=== PATIENT | male | born 1960 | race Caucasian/White ===

== ENCOUNTER 2022-11-03 23:42 | Emergency (ER) | payer OTHER, SELFPAY ==
--- NOTE | ~2022-11-03 | XR_ITS ---
Portable chest x-ray Comparison: None Clinical History: Chest pain Findings: Lungs are clear, without focal consolidation or pleural effusion. Cardiomediastinal silho uette is enlarged. Bones and soft tissues are unremarkable. Impression: Clear lungs. Cardiomegaly. Reviewed, dictated and finalized at location . Impression: Clear lungs. Cardiomegaly.
--- NOTE | 2022-11-03 23:51 | ECG_ITS ---
Measurements Intervals [place] Rate: 72 P: -47 ME: 171 QRS: -33 QRSD: 214 T: 147 QT: 502 QTc: 550 Interpretive Statements ECTOPIC ATRIAL RHYTHM BASELINE ARTIFACT/DIFFICULT TO DISCERN ATRIAL RHYTHM LEFT AXIS DEVIATION [QRS AXIS < -30] LEFT BUNDLE BRANCH BLOCK [120+ ms QRS DURATION, 80+ ms Q/S IN V1/V2, 85+ ms R IN I/aVL/V5/V6] NO PREVIOUS ECG AVAILABLE FOR COMPARISON Electronically Signed On 11-04-2022 7:17:59 CDT by Ayo Betts M.D.
[2022-11-03 23:58] VITALS: PULSE 71; O2SAT 100
--- NOTE | 2022-11-03 23:58 | ED.GENADULT ---
HPI - General Adult General Chief complaint: Chest Pain Stated complaint: Chest pain Time Seen by Provider: 11/03/22 23:45 History of Present Illness HPI narrative: The patient is a 62-year-old male with history of hypertension, on losartan and hydrochlorothiazide, and obesity. He is on multiple medications for weight loss. Also with GERD. He presents to the emergency room with onset of left upper sternal substernal chest discomfort since 8:00 p.m., constant in nature, waxing and waning in intensity, not radiating elsewhere in the chest described as mild, and ache or discomfort. It is not worse by pressing on the chest wall. He has associated burping with it. No shortness of breath or diaphoresis or nausea or fevers or chills or cough rhinorrhea or nasal congestion or abdominal pain or vomiting. No previous similar history. No history of myocardial infarction or stroke. No known diabetes. Has never smoked. Related Data Home Medications Medication Instructions Recorded Confirmed aspirin 81 mg capsule 81 mg PO DAILY 11/03/22 11/03/22 hydrochlorothiazide 25 mg tablet 25 mg PO DAILY 11/03/22 11/03/22 levocetirizine 5 mg tablet 5 mg PO DAILY 11/03/22 11/03/22 losartan 50 mg tablet 50 mg PO DAILY 11/03/22 11/03/22 omeprazole magnesium 20 mg 20 mg PO DAILY 11/03/22 11/03/22 tablet,delayed release (Prilosec OTC) phentermine 37.5 mg tablet 37.5 mg PO DAILY 11/03/22 11/03/22 topiramate 50 mg tablet 50 mg PO BID 11/03/22 11/03/22 vitamin B complex (B 1 tablet PO DAILY 11/03/22 11/03/22 Complex-Vitamin B12 tablet) Allergies Allergy/AdvReac Type Severity Reaction Status Date / Time No Known Allergies Allergy Verified 11/03/22 23:56 Review of Systems Review of Systems: All systems reviewed & are unremarkable except as noted in HPI and below Constitutional: Constitutional: Reports as per HPI, Reports no additional constitutional complaints, Denies chills, Denies excessive sweating, Denies fatigue, Denies fever(s), Denies headache(s) and Denies weakness Eyes: Eyes: Reports as per HPI, Reports no additional eye complaints, Denies change in vision and Denies photophobia ENT: Reports system reviewed and no additional complaints, except as documented, Reports as per HPI, Denies dysphagia, Denies vertigo, Denies dizziness, Denies headache(s), Denies lip swelling, Denies nasal congestion, Denies sore throat, Denies throat swelling and Denies tongue swelling Cardiovascular: Cardiovascular: Reports as per HPI, Reports no additional cardiovascular complaints, Reports chest pain, Denies syncope, Denies rapid heart rate and Denies dyspnea Respiratory: Respiratory: Reports as per HPI, Reports no additional respiratory complaints, Denies chest congestion, Denies cough, Denies dyspnea and Denies wheezing Gastrointestinal: Gastrointestinal: Reports as per HPI, Reports no additional gastrointestinal complaints, Denies abdominal pain, Denies constipation, Denies dysphagia, Denies diarrhea, Denies nausea and Denies vomiting Genitourinary: Genitourinary: Reports as per HPI, Denies hematuria, Denies oliguria, Denies dysuria, Denies urinary frequency, Denies urinary incontinence and Denies urinary urgency Musculoskeletal: Musculoskeletal: Reports no additional musculoskeletal complaints, Denies back pain, Denies myalgias, Denies arthralgias, Denies joint swelling and Denies numbness Integumentary/Breasts: Skin/Breast: Reports system reviewed and no additional complaints, except as docu, Denies pruritus, Denies erythema, Denies rash and Denies skin ulcer Neurologic: Reports system reviewed and no additional complaints, except as documented, Reports as per HPI, Denies confusion, Denies vertigo, Denies dizziness, Denies syncope, Denies headache(s), Denies focal weakness, Denies numbness and Denies weakness Psychiatric: Psychiatric: Reports as per HPI, Denies anxiety, Denies confusion, Denies depression, Denies homicidal ideation and Denies suicidal ideat
[2022-11-04] VITALS (15 sets, daily range): BP systolic 117–140; BP diastolic 72–92; PULSE 65–74; RESP 9–20; TEMP 36.6–36.9; O2SAT 93–99
[2022-11-04 00:09] LABS: Basophils Absolute Auto 0.04 K/mm3 (0.00-0.10); Basophils Percent Auto 0.7 % (0.0-1.0); Eosinophils Absolute Auto 0.24 K/mm3 (0.02-0.50); Eosinophils Percent Auto 4.1 % (1.0-6.0); Hematocrit 41.7 % (40.0-54.0); Hemoglobin 14.1 g/dL (14.0-18.0); Immature Granulocyte Absolute 0.03 K/mm3 (0.00-0.00); Immature Granulocyte Percent A 0.5 % (0.0-0.0); Lymphocytes Absolute Auto 1.97 K/mm3 (1.10-4.50); Lymphocytes Percent Auto 33.8 % (18.0-42.0); Mean Corpuscular HGB Conc 33.8 g/dL (32.0-36.0); Mean Corpuscular Hemoglobin 30.7 pg (27.0-31.0); Mean Corpuscular Volume 90.7 fL (78.0-102.0); Mean Platelet Volume 8.3 fl (8.7-11.0); Monocytes Absolute Auto 0.48 K/mm3 (0.10-0.90); Monocytes Percent Auto 8.2 % (2.0-11.0); Neutrophils Absolute Auto 3.1 K/mm3 (1.7-7.2); Neutrophils Percent Auto 52.7 % (50.0-70.0); Platelet Count Result 279 K/mm3 (150-420); White Blood Count 5.8 K/mm3 (4.8-10.8)
[2022-11-04] MEDS: ASPIRIN 81 MG CHEWABLE TABLET 324 MG PO (00:10)
[2022-11-04] MEDS: NITROGLYCERIN OINTMENT 1 INCH DOSE TRANSDERM (00:10)
[2022-11-04] MEDS: ACETAMINOPHEN 500 MG TABLET 1000 MG PO (00:10)
[2022-11-04] MEDS: KETOROLAC 15 MG/ML VIAL (*BKC) IV PUSH (00:11)
[2022-11-04 00:22] LABS: D Dimer 0.26 mg/L (0.19-0.50)
[2022-11-04 00:30] LABS: Alanine Aminotransferase 22 U/L (16-63); Albumin Level 3.6 g/dL (3.4-5.0); Alkaline Phosphatase 76 U/L (46-116); Anion Gap 8 mmol/L (8-16); Aspartate Amino Transferase 16 U/L (15-37); Bilirubin,Total 0.4 mg/dL (0.00-1.00); Blood Urea Nitrogen 16 mg/dL (7-18); Calcium 8.9 mg/dL (8.5-10.1); Carbon Dioxide 29 mmol/L (21-32); Chloride 100 mmol/L (98-108); Estimated CRCL calculation 111 ml/min; Estimated Glomerular Filt Rate > 60; Glucose 103 mg/dL (70-99); NT Pro B Type Natriuretic Pept 851 pg/mL (0-125); Osmolality Calculated 285 mOsm/kg (285-295); Potassium 3.9 mmol/L (3.5-5.1); Sodium 137 mmol/L (136-145); Total Protein 6.9 g/dL (6.4-8.2)
[2022-11-04 00:31] LABS: Troponin I 23.9 ng/L (0.00-60.4)
--- NOTE | 2022-11-04 01:46 | PC.NURSE ---
Pt resting, no c/o at this time, monitor continues to show SR c BBB, VSS. Call hodge at pt side.
[2022-11-04 02:26] LABS: Troponin I 19.5 ng/L (0.00-60.4)
== END 2022-11-04 02:53 | disposition home or self-care (01) ==
PROVIDERS: Emergency Provider Emergency Medicine; PCP Family Medicine
DX: I11.0 Hypertensive heart disease with heart failure (principal); I50.9 Heart failure, unspecified; Z79.82 Long term (current) use of aspirin
CPT/HCPCS: 36415; 71045; 80053; 83880; 84484; 85025; 85380; 93005; 96374; 99284; A9270; J1885

== ENCOUNTER 2022-11-05 10:08 | Inpatient (IN) | payer OTHER, SELFPAY ==
[2022-11-05] VITALS (26 sets, daily range): BP systolic 145–180; BP diastolic 91–109; PULSE 77–96; RESP 14–20; TEMP 36.7–36.8; O2SAT 96–100; BMI 43.9
--- NOTE | ~2022-11-05 | XR_ITS ---
Thoracic spine: Clinical Indication: Back pain AP and lateral views were performed. No fracture is seen. There is normal alignment of the vertebrae. There are scattered mild degenerati ve disc changes throughout the thoracic spine. Paravertebral soft tissues appear normal. Impression: Mild degenerative disc changes throughout the thoracic spine. No fracture or subluxation seen. Reviewed, dictated and finalized at [facility]. Impression: Mild degenerative disc changes throughout the thoracic spine. No fracture or subluxation seen.
--- NOTE | ~2022-11-05 | NM_ITS ---
EXAMINATION: NM lynette stress w perfusion DATE: 11/06/2022 14:44 INDICATION: Chest pain TECHNIQUE: Rest images were obtained following intravenous administration of 10.1 mCi Tc99m tetrofosm in (Myoview). The patient was infused intravenously with Lexiscan (Regadenoson). Then, 32.7 mCi Tc99m tetrofosmin (Myoview) was administered intravenously, and stress images were obtained, first in supi ne position with additional repeat post stress images obtained in the prone position. Data was recons tructed into short axis and horizontal and vertical long axis SPECT images. Gated SPECT images were a lso obtained. COMPARISON: None. FINDINGS: Moderate severity nonreversible perfusion defect consistent with infarct involving the apic al, apical anterior, apical septal, mid anteroseptal, mid inferoseptal and basilar inferoseptal segme nts. No reversible ischemia. There is marked left ventricular chamber enlargement with calculated en d-diastolic volume of 407 mL. There is global hypokinesis and moderately decreased left ventricular e jection fraction measuring 24%. IMPRESSION: 1. Moderate-sized, moderate severity infarct involving the left anterior descending coronary artery v ascular distribution. 2. Separate smaller moderate severity infarct involving portion of the right coronary artery vascular distribution as detailed above. 3. No reversible ischemia. 4. Marked left ventricular enlargement and global hypokinesis resulting in moderately decreased left ventricular ejection fraction measuring 24%. Reviewed, dictated and finalized at location A. IMPRESSION: 1. Moderate-sized, moderate severity infarct involving the left anterior descen ding coronary artery vascular distribution. 2. Separate smaller moderate severity infarct involving portion of the right co ronary artery vascular distribution as detailed above. 3. No reversible ischemia. 4. Marked left ventricular enlargement and global hypokinesis resulting in mode rately decreased left ventricular ejection fraction measuring 24%.
--- NOTE | ~2022-11-05 | XR_ITS ---
Clinical Indication: Chest pain PA and lateral views of the chest: Comparison: 11/03/2022 Findings: The lungs are clear, without evidence of focal consolidation or pleural effusion. Cardiome diastinal silhouette is stable. Bones and soft tissues are unremarkable. Impression: Normal chest. Reviewed, dictated and finalized at [facility]. Impression: Normal chest.
--- NOTE | 2022-11-05 10:09 | ECG_ITS ---
Measurements Intervals [place] Rate: 80 P: 33 OR: 179 QRS: -37 QRSD: 213 T: 133 QT: 450 QTc: 520 Interpretive Statements SINUS RHYTHM MARKED LEFT AXIS DEVIATION [QRS AXIS < -30] LEFT BUNDLE BRANCH BLOCK [120+ ms QRS DURATION, 80+ ms Q/S IN V1/V2, 85+ ms R IN I/aVL/V5/V6] COMPARED TO ECG 11/03/2022 23:56:35 SINUS RHYTHM NOW PRESENT Electronically Signed On 11-05-2022 15:55:37 CDT by Zane Martínez M.D.
[2022-11-05 10:24] LABS: Basophils Percent Auto 0.4 % (0.2-1.2); Eosinophils Absolute Auto 0.2 K/mm3 (0-0.3); Eosinophils Percent Auto 2.8 % (0-4.4); Hematocrit 45.2 % (42.0-52.0); Hemoglobin 15.2 g/dL (14.0-18.0); Immature Granulocyte Absolute 0.01 K/mm3 (0.00-0.031); Immature Granulocyte Percent A 0.2 % (0-0.5); Lymphocytes Percent Auto 33.8 % (18.3-44.2); Mean Corpuscular HGB Conc 33.6 g/dl (32-36); Mean Corpuscular Hemoglobin 30.9 pg (26-34); Mean Corpuscular Volume 91.9 fl (80-100); Mean Platelet Volume 8.3 fl (7.4-10.4); Monocytes Absolute Auto 0.5 K/mm3 (0.1-0.6); Monocytes Percent Auto 8.4 % (2.6-8.5); Neutrophils Absolute Auto 2.9 K/mm3 (1.3-6.7); Neutrophils Percent Auto 54.4 % (45.5-73.1); Platelet Count Result 290 k/mm3 (150-375); Red Blood Count 4.92 M/mm3 (4.6-6.20); Red Cell Distribution Width 13.5 % (11.5-14.5); White Blood Count 5.3 K/mm3 (4.5-10.0)
[2022-11-05 10:34] LABS: Alanine Aminotransferase 22 U/L (6-50); Albumin Level 4.3 g/dL (3.5-5.1); Alkaline Phosphatase 76 U/L (38-126); Anion Gap 7 mmol/L (8-16); Aspartate Amino Transferase 21 U/L (17-59); Bilirubin,Total 0.7 mg/dL (0.2-1.3); Blood Urea Nitrogen 19 mg/dL (9-20); Calcium 8.9 mg/dL (8.4-10.2); Carbon Dioxide 28 mmol/L (22-30); Chloride 101 mmol/L (98-107); Estimated CRCL calculation 125 ml/min; Estimated Glomerular Filt Rate > 60; Glucose 93 mg/dL (65-110); INR 1.1; Lipase 61 U/L (23-300); Potassium 3.9 mmol/L (3.4-5.0); Prothrombin Time 13.4 Seconds (11.1-14.7); Sodium 136 mmol/L (137-145)
[2022-11-05 10:35] LABS: Partial Thromboplastin Time 26.6 SECONDS (22.3-36.8)
[2022-11-05 10:47] LABS: Troponin I 0.012 ng/mL (0.000-0.034)
--- NOTE | 2022-11-05 11:10 | PC.NURSE ---
Report received from Kandis Major at this time including history and physical and plan of care
--- NOTE | 2022-11-05 11:22 | ED.CHESTPAIN ---
HPI - Chest Pain General Chief Complaint: Chest Pain Stated Complaint: CP Time Seen by Provider: 11/05/22 11:10 History of Present Illness HPI narrative: Patient is a 62-year-old male who presents to the ER with chest pain. Has had constant chest pain for the last 3 days. He has paroxysmal of the pain increases. Its been in his left chest going to his shoulder. He is also had some posterior breast pain that is worse with physical or movement. Patient reports when he was at the ER 2 days ago he had 2 negative troponins and was started on Lasix. He reports there is some fluid in his lungs. Denies fevers or chills or sweats. No exertional shortness of breath. No history of heart disease. Related Data Home Medications Medication Instructions Recorded Confirmed aspirin 81 mg capsule 81 mg PO DAILY 11/03/22 11/03/22 hydrochlorothiazide 25 mg tablet 25 mg PO DAILY 11/03/22 11/03/22 levocetirizine 5 mg tablet 5 mg PO DAILY 11/03/22 11/03/22 losartan 50 mg tablet 50 mg PO DAILY 11/03/22 11/03/22 omeprazole magnesium 20 mg 20 mg PO DAILY 11/03/22 11/03/22 tablet,delayed release (Prilosec OTC) phentermine 37.5 mg tablet 37.5 mg PO DAILY 11/03/22 11/03/22 topiramate 50 mg tablet 50 mg PO BID 11/03/22 11/03/22 vitamin B complex (B 1 tablet PO DAILY 11/03/22 11/03/22 Complex-Vitamin B12 tablet) Allergies Allergy/AdvReac Type Severity Reaction Status Date / Time No Known Allergies Allergy Verified 11/03/22 23:56 Review of Systems Review of Systems: All systems reviewed & are unremarkable except as noted in HPI and below Constitutional: Constitutional: Denies chills, Denies fatigue and Denies fever(s) ENT: Denies nasal congestion and Denies sore throat Cardiovascular: Cardiovascular: Reports chest pain, Denies rapid heart rate and Denies radiating jaw, neck or arm pain Respiratory: Respiratory: Denies cough and Denies dyspnea Gastrointestinal: Gastrointestinal: Denies abdominal pain, Denies nausea and Denies vomiting Musculoskeletal: Musculoskeletal: Reports back pain, Denies arthralgias, Denies joint swelling and Reports muscle cramps Integumentary/Breasts: Skin/Breast: Denies rash PMFSH Past Medical History Medical History (Updated 11/05/22 @ 18:27 by Cortes Guevara MD) Hypertension Surgical History Surgical History (Updated 11/05/22 @ 18:23 by Cortes Guevara MD) No history of previous surgery Social History Social History (Updated 11/05/22 @ 18:23 by Cortes Guevara MD) Social History: occassional etoh Exam Narrative: GENERAL: Well-appearing, well-nourished, and in no acute distress. HEAD: Normocephalic, atraumatic. ENT: Mucous membranes moist. NECK: Supple. CHEST: Clear to auscultation. No respiratory distress. HEART: Regular rate and rhythm. Normal peripheral pulses. ABDOMEN: Soft, nontender, nondistended. EXTREMITIES: Normal range of motion. No edema. Tender palpation left posterior rhomboid musculature. SKIN: Warm, dry, no rash. NEURO: Alert and oriented x3. PSYCH: Normal mood and affect. Course Course Emergency Course: Patient was resting comfortably now with increased shoulder pain which seems musculoskeletal in nature. Given patient's chest pain has been radiating to the shoulder as well and his intermittent blood pressures in the 180s I have consulted cardiology. After discussion is felt he is on the borderline of whether he should be admitted or not for stress test. And then given repeat ER visits in the last 2 days he will be admitted for observation and stress testing. Patient accepted by the hospitalist service. Vital Signs Vital signs: Vital Signs Temperature 98.2 F 11/05/22 10:24 Pulse Rate 78 11/05/22 10:24 Respiratory Rate 18 11/05/22 10:24 Blood Pressure 147/97 H 11/05/22 10:24 Pulse Oximetry 100 11/05/22 10:24 Oxygen Delivery Room Air 11/05/22 10:24 Temperature 98.2 F 11/05/22 10:24 Pulse Rate 87 11/05/22 14:30 R
[2022-11-05] MEDS: ASPIRIN 81 MG CHEWABLE TABLET 324 MG PO (11:32)
[2022-11-05 13:34] LABS: Troponin I 0.014 ng/mL (0.000-0.034)
[2022-11-05] MEDS: ACETAMINOPHEN 325 MG TABLET 650 MG PO (15:15)
[2022-11-05 16:59] LABS: Troponin I 0.015 ng/mL (0.000-0.034)
[2022-11-05] MEDS: CYCLOBENZAPRINE HCL 10 MG TABLET PO (17:02)
--- NOTE | 2022-11-05 17:15 | PM.IMHP ---
H&P: HPI History of Present Illness Date/Time: 11/05/22 17:15 Chief Complaint: Chest and left shoulder pain. Narrative: This is a very pleasant 62-year-old male with hypertension, obstructive sleep apnea on CPAP, and GERD who presented to the ED via private vehicle from home for evaluation of chest and left shoulder pain. He had a normal day at work on Thursday and when he got home later that evening he developed an aching discomfort in the midsternal and left upper chest region for which [place] [facility] [place] time showed a left bundle branch block without prior tracings for comparison. He had 2 negative high sensitivity troponins and he was chest pain-free after receiving aspirin 324 mg, Tylenol, and Toradol. He was discharged home to follow-up with his primary care provider. The patient tells me he was discharged home with furosemide 40 mg b.i.d. due to concerns for possible interstitial edema on imaging. On Thursday the pain seemed to radiate more into the left arm and shoulder. It has been pretty constant since that time and seems to be worse with movement. It does not seem to be worse with exertion or deep inspiration. He has not had epigastric or abdominal pain. No bloating but he has had some belching. With further questioning he did some heavy lifting at work on Thursday and recalls picking up an approximately 60 lb chain which he threw in his truck though he did not struggle with that and does not recall any discomfort in his muscles at that time. Review of Systems Review of Systems: Twelve systems were reviewed. No fever, chills, or sweats. No recent cold or flu symptoms. He has had some belching. No significant heartburn. No history of peptic ulcers. He denies melena and hematochezia. He takes Tylenol or occasionally Motrin for arthritic pain but certainly not on a daily or even weekly basis. He has not had any edema in the legs and he denies orthopnea. He states compliance with his CPAP. Except as documented, all other systems were reviewed and are negative. [facility] Past Medical History Medical History (Updated 11/05/22 @ 21:17 by Shira Hines PA-C) Hypertension Obstructive sleep apnea on CPAP Surgical History Surgical History (Updated 11/05/22 @ 21:13 by Shira Hines PA-C) History of cardiac catheterization (2002) Clear coronary arteries. S/P cubital tunnel release Left. Family History Family History (Updated 11/05/22 @ 21:14 by Shira Hines PA-C) Sibling Diabetes mellitus Hodgkins lymphoma Mother Alzheimer's dementia Father Emphysema lung Acute myocardial infarction Social History Social History (Updated 11/05/22 @ 21:15 by Shira Hines PA-C) Social History: Surrogate medical decision maker: Tamika Caceres, significant other. Code status: Full code. Smoking status: Never smoker Alcohol intake: current Drinks per week: 2 Substance use: never Substance use type: does not use Lack of Transportation: No Lack of Food: Never True Current Housing: I Have Housing Concerned About Future Housing: No Difficulty Paying Gas/Electric Bills: No Difficulty Paying for Meds: No Currently Unemployed: No Education: High School Diploma/GED Difficulty w/ Childcare or Family Care: No Additional living arrangements comments: Lives with significant other in [place]. Spiritual care concerns: No Meds Home Medications and Allergies Home Medications Medication Instructions Recorded Confirmed Type aspirin 81 mg capsule 81 mg PO DAILY 11/03/22 11/05/22 History hydrochlorothiazide 25 mg tablet 25 mg PO DAILY 11/03/22 11/05/22 History levocetirizine 5 mg tablet 5 mg PO DAILY 11/03/22 11/05/22 History losartan 50 mg tablet 50 mg PO DAILY 11/03/22 11/05/22 History omeprazole magnesium 20 mg 20 mg PO DAILY 11/03/22 11/05/22 History tablet,delayed release (Prilosec OTC) phentermine 37.5
--- NOTE | 2022-11-05 18:35 | ADMGEN ---
This patient, David Bolaños, was admitted to IMU Room 206-02 @ 1825. Patient/family oriented to hospital policies and general routines including ID bracelet, bed and alarms, visiting hours, pain management, procedures, bathroom and other care routines, personal items, smoking policy, room service/diet, and visiting hours. Information on how to activate the Rapid Response Team has been discussed. Patient/Family are encouraged to report perceived risks to care and to ask questions if they do not understand what they are told or what they should do.
[2022-11-05] MEDS: HYDROcodone/acetaminophen (*CRX) 5-325 MG TABLET 1 TAB PO (18:36)
[2022-11-05] MEDS: MORPHINE SULFATE (*CRX) 2 MG/ML INJ IV PUSH (23:10)
[2022-11-06] VITALS (18 sets, daily range): BP systolic 113–158; BP diastolic 87–105; PULSE 71–110; RESP 16–20; TEMP 36.1–36.7; O2SAT 97–99
[2022-11-06] MEDS: HYDROcodone/acetaminophen (*CRX) 5-325 MG TABLET 1 TAB PO ×3 (02:05→16:48)
[2022-11-06 05:00] LABS: Hematocrit 42.8 % (42.0-52.0); Hemoglobin 14.6 g/dL (14.0-18.0); Mean Corpuscular HGB Conc 34.1 g/dl (32-36); Mean Corpuscular Hemoglobin 30.4 pg (26-34); Mean Corpuscular Volume 89.2 fl (80-100); Mean Platelet Volume 8.2 fl (7.4-10.4); Platelet Count Result 276 k/mm3 (150-375); Red Cell Distribution Width 13.2 % (11.5-14.5); White Blood Count 5.6 K/mm3 (4.5-10.0)
[2022-11-06] MEDS: ACETAMINOPHEN 325 MG TABLET 650 MG PO ×2 (05:10→20:27)
[2022-11-06 05:18] LABS: Anion Gap 4 mmol/L (8-16); Blood Urea Nitrogen 17 mg/dL (9-20); Calcium 8.9 mg/dL (8.4-10.2); Carbon Dioxide 30 mmol/L (22-30); Chloride 101 mmol/L (98-107); Cholesterol 212 mg/dL (0-200); Estimated CRCL calculation 126 ml/min; Estimated Glomerular Filt Rate > 60; Glucose 106 mg/dL (65-110); HDL Direct 44 mg/dL; Magnesium 2.1 mg/dL (1.6-2.3); Potassium 3.9 mmol/L (3.4-5.0); Sodium 135 mmol/L (137-145); Triglycerides 101 mg/dL (<150)
[2022-11-06 05:30] LABS: LDL Cholesterol Direct 139 mg/dL
[2022-11-06 08:20] LABS: Glucose Point of Care 100 mg/dl (65-105)
[2022-11-06] MEDS: LOSARTAN POTASSIUM 50 MG TABLET PO (08:46)
[2022-11-06] MEDS: POTASSIUM CHLORIDE 10 MEQ TABLET.ER 20 MEQ PO (08:46)
[2022-11-06] MEDS: VITAMIN B COMPLEX CAPSULE 1 CAP PO (08:46)
[2022-11-06] MEDS: hydroCHLOROthiazide 25 MG TABLET PO (08:47)
[2022-11-06] MEDS: FUROSEMIDE 40 MG TABLET PO (08:47)
[2022-11-06] MEDS: PANTOPRAZOLE 40 MG TABLET PO (08:47)
[2022-11-06] MEDS: LORATADINE 10 MG TABLET PO (08:47)
[2022-11-06] MEDS: ASPIRIN 81 MG ENTERIC TABLET PO (08:47)
[2022-11-06] MEDS: ENOXAPARIN 40 MG/0.4 ML SYRINGE SUB-Q (08:48)
--- NOTE | 2022-11-06 10:33 | EST_ITS ---
Patient Info Name: David Bolaños Age: 62 years : 1960 Gender: Male Ht: 73 in Wt: 333 lbs BSA: 2.86 m2 HR: 84 bpm BP: 119 / 98 mmHg Heart Rhythm: Sinus Rhythm Exam Date: 11/06/2022 1:34 PM Exam Location: [facility] Stress Patient Status: Outpatient Admit Date: 11/05/2022 Staff Ordering Physician: Zane Martínez MD Attending Provider: Nydia Self DO Exercise Technologist: Miryam Grey, CT Nurse: grabiel giles Exam Type: CA stress lynette w NM Study Info Indications R07.89 - Other chest pain A regadenoson stress test was performed. Summary 1. Non-diagnostic ECG due to left bundle branch block. 2. Please correlate with nuclear medicine images, reported separately. Protocol: Lexiscan Stress ECG Details Stage: REST Duration (min): 0 min : 58 sec HR (bpm): 86 SBP (mmHg): 119 DBP (mmHg): 98 Stage: REST Duration (min): 8 min : 1 sec HR (bpm): 87 SBP (mmHg): 119 DBP (mmHg): 98 Stage: STAGE 1 Duration (min): 0 min : 59 sec HR (bpm): 91 SBP (mmHg): 139 DBP (mmHg): 96 Stage: RECOVERY Duration (min): 1 min : 0 sec HR (bpm): 99 SBP (mmHg): 139 DBP (mmHg): 96 Stage: RECOVERY Duration (min): 2 min : 0 sec HR (bpm): 95 SBP (mmHg): 139 DBP (mmHg): 96 Stage: RECOVERY Duration (min): 3 min : 0 sec HR (bpm): 95 SBP (mmHg): 108 DBP (mmHg): 93 Stage: RECOVERY Duration (min): 3 min : 6 sec HR (bpm): 95 SBP (mmHg): 108 DBP (mmHg): 93 Rest HR: 87 bpm Peak HR: 100 bpm Rest Sys BP: 119 mmHg Peak Sys BP: 139 mmHg Max Pred HR: 157 bpm % Max Pred HR: 64 % Target HR: 133 bpm Max RPP: 13,900 bpm*mmHg Total Time: 1 min : 0 sec Rest Blanco BP: 98 mmHg Peak Blanco BP: 96 mmHg Total Dose: 0.4 mg Resting ECG Sinus rhythm. Left bundle branch block. Stress ECG Sinus tachycardia. Non-diagnostic ECG due to left bundle branch block. Arrhythmias Occasional PACs. Occasional PVCs. Report Signatures
[2022-11-06 11:13] LABS: Glucose Point of Care 106 mg/dl (65-105)
--- NOTE | 2022-11-06 11:40 | PM.CNCAR ---
Assessment and Plan Assessment and plan (1) Atypical chest pain: Code(s): R07.89 - Other chest pain Status: Acute (2) Left bundle branch block: Code(s): I44.7 - Left bundle-branch block, unspecified Status: Acute Plan Atypical chest pain. No associated with exertion. Pain changes depending on which way he turns his head. Troponins negative x 3. EKG with LBBB. Likely musculoskeletal, however, given his risk factors for CAD along with LBBB of unknown duration, recommend pharmacologic MPI. Discussed stress test with the patient, and patient is agreeable to proceed. Patient has been NPO since yesterday, will obtain stress test today. If stress test is normal, patient can be discharged home from cardiac standpoint. History of Present Illness History of Present Illness Consult date/time: 11/06/22 11:40 Requesting physician: Cortes Guevara MD Consult reason: chest pain Reason For Visit: Chest Pain Narrative: We are consulted for chest pain. This is a 62-year-old male with a history of hypertension, obstructive sleep apnea on CPAP, GERD, and morbid obesity who presents for evaluation of chest pain. Had central and left upper chest pain that began on Thursday. Was seen in the ED at [place]. EKG there showed sinus rhythm with LBBB. Had 2 negative troponins, therefore was discharged home. On Thursday, patient had left shoulder pain that has been constant. No association with exertion. Normally does heavy lifting at work, but does not remember injuring himself. Given ongoing symptoms, patient presented to [place] ER. EKG with sinus rhythm with LBBB. Troponins negative x 3. Patient reports having a heart cath 20 years ago that was clean. Unknown duration of LBBB. Patient mentions that his left shoulder hurts more if he turns his head one way and improves with he turns his head the other way. Review of Systems Review of Systems: All systems reviewed & are unremarkable except as noted in HPI and below (HPI) [facility] Past Medical History Medical History Hypertension Obstructive sleep apnea on CPAP Surgical History Surgical History History of cardiac catheterization (2002) Clear coronary arteries. S/P cubital tunnel release Left. Family History Family History Sibling Diabetes mellitus Hodgkins lymphoma Mother Alzheimer's dementia Father Emphysema lung Acute myocardial infarction Social History Social History Social History: Surrogate medical decision maker: Tamika Caceres, significant other. Code status: Full code. Smoking status: Never smoker Alcohol intake: current Drinks per week: 2 Substance use: never Substance use type: does not use Lack of Transportation: No Lack of Food: Never True Current Housing: I Have Housing Concerned About Future Housing: No Difficulty Paying Gas/Electric Bills: No Difficulty Paying for Meds: No Currently Unemployed: No Education: High School Diploma/GED Difficulty w/ Childcare or Family Care: No Additional living arrangements comments: Lives with significant other in [place]. Spiritual care concerns: No Meds Home Medications and Allergies Home Medications Medication Instructions Recorded Confirmed Type aspirin 81 mg capsule 81 mg PO DAILY 11/03/22 11/05/22 History hydrochlorothiazide 25 mg tablet 25 mg PO DAILY 11/03/22 11/05/22 History levocetirizine 5 mg tablet 5 mg PO DAILY 11/03/22 11/05/22 History losartan 50 mg tablet 50 mg PO DAILY 11/03/22 11/05/22 History omeprazole magnesium 20 mg 20 mg PO DAILY 11/03/22 11/05/22 History tablet,delayed release (Prilosec OTC) phentermine 37.5 mg tablet 37.5 mg PO DAILY 11/03/22 11/05/22 History vitamin B complex (B 1 tablet PO DAILY 11/03/22 11/05/22 History Compl
--- NOTE | 2022-11-06 12:28 | PCCARD ---
DR WALTON [place] [place] [facility] [place] CANCELLED ECHOCARDIOGRAM. SHE ORDERED A STRESS TEST INSTEAD
--- NOTE | 2022-11-06 14:12 | PM.IMPN ---
Progress Note: A&P Assessment and Plan (1) Atypical chest pain: Code(s): R07.89 - Other chest pain Status: Acute Assessment and Plan: The patient initially developed pain in the mid chest radiating to the left upper chest on Thursday evening while at home. He was seen in the [facility] in the ED and had 2 negative high sensitivity troponins. He was pain free after receiving aspirin and Toradol and he was discharged home to follow up with his primary care provider. He is not having any mid chest pain and she seems to now have more discomfort in the left shoulder as detailed in HPI. This pain he was having started hours after he lifted a 60 lb chain in throughout into his truck and it seems to be more musculoskeletal in etiology. However he does have a left bundle branch block on his EKG and has risk factors for heart disease thus he is being admitted overnight for close monitoring and Cardiology consultation. Stress test: 1. Moderate-sized, moderate severity infarct involving the left anterior descending coronary artery vascular distribution. 2. Separate smaller moderate severity infarct involving portion of the right coronary artery vascular distribution as detailed above. 3. No reversible ischemia. 4. Marked left ventricular enlargement and global hypokinesis resulting in moderately decreased left ventricular ejection fraction measuring 24%. Next line plan for cardiac catheterization in a.m. On aspirin carvedilol (2) Left shoulder pain: Code(s): M25.512 - Pain in left shoulder Status: Acute Assessment and Plan: Likely musculoskeletal in etiology as it is reproducible on exam. (3) Hypertension: Code(s): I10 - Essential (primary) hypertension Status: Acute Assessment and Plan: Blood pressure was as high as 180/105 in the emergency department but has improved with pain control (he was given Flexeril for the discomfort in his shoulder). Continue current doses of antihypertensives. Adjustments can be made depending on how he trends overnight. Abdomen he was started on furosemide a couple of days ago while he was in the ED but he requests being taken off of that as he is urinating quite a bit as he is also on hydrochlorothiazide. (4) Left bundle branch block: Code(s): I44.7 - Left bundle-branch block, unspecified Status: Acute Assessment and Plan: Unclear if this is old or new. Echocardiogram ordered. EF from stress test 24% (5) Obstructive sleep apnea on CPAP: Code(s): G47.33 - Obstructive sleep apnea (adult) (pediatric); Z99.89 - Dependence on other enabling machines and devices Status: Acute Assessment and Plan: CPAP will be provided for the patient to use while hospitalized. Subjective Date/time seen: 11/06/22 14:12 Interval history: Patient presented with chest pain/3 days constant recently in the with similar negative troponin. Been on on phentermine and Topamax blood pressure has been elevated in the ER admitted for observation and stress test. Cardiology consulted. Atypical chest EKG with left bundle-branch block stress test planned if stress test negative patient can be discharged from cardiac standpoint Discussed Cardiology. Stress test came back normal. Plan for cath in a.m. Review of Systems Review of Systems: All systems reviewed & are unremarkable except as noted in HPI and below Exam Narrative: General: Well-developed, nontoxic-appearing male sitting up in bed in no distress. HEENT: PERRL, EOMI. Sclera anicteric. Oral mucosa moist. Crowded oropharynx. Neck: Supple. Exam limited due to neck circumference. No obvious JVD or bruits. Respiratory: Lungs are clear to auscultation bilaterally. Cardiovascular: Regular rate and rhythm with S1-S2. Chest: He is tender to palpation over the left upper chest, left shoulder, and the left suprascapular region. Gastrointestinal: Abdomen is soft, obese, non
[2022-11-06 16:43] LABS: Glucose Point of Care 154 mg/dl (65-105)
[2022-11-06] MEDS: carvediloL 6.25 MG TABLET PO (20:43)
[2022-11-06 20:52] LABS: Hemoglobin A1C 5.5 % (<5.7)
[2022-11-07] VITALS (24 sets, daily range): BP systolic 124–146; BP diastolic 79–93; PULSE 66–96; RESP 16–20; TEMP 36.1–36.6; O2SAT 96–98
--- NOTE | 2022-11-07 | ECHO_ITS ---
Patient Info Name: David Bolaños Age: 62 years : 1960 Gender: Male Ht: 73 in Wt: 333 lbs BSA: 2.86 m2 HR: 74 bpm BP: 145 / 93 mmHg Heart Rhythm: Sinus Rhythm Technical Quality: Poor Exam Date: 11/07/2022 1:46 PM Exam Location: [facility] Patient Status: Outpatient Admit Date: 11/05/2022 Staff Ordering Physician: Marisela Herrera Adventure Therapist: Stephany Manuel RDCS Attending Provider: Nydia Self DO Referring Physician: Sharon DAVIS; Exam Type: CA echo dop color flow w con Study Info Indications - cardiomyopathy Complete two-dimensional, color flow and Doppler transthoracic echocardiogram is performed with contrast to opacify the left ventricle and to improve the deliniation of the left ventricle endocardial borders. Contrast/Agitated Saline Contrast/Ag. Saline: Definity Amount: 3.00 ml Administered By: Stephany Manuel RDCS Existing IV Access: Yes IV Access Condition: patent with no signs of infiltration Summary 1. Technically challenging echocardiogram because of obesity/study done in the seated position. Definity contrast used. 2. Left ventricular enlargement with severe global systolic hypocontractility and low ejection fraction. 3. Grade 1 diastolic noncompliance. 4. No valvular dysfunction. Left Ventricle Left ventricular chamber dimension is severely enlarged. Left ventricular systolic function is severely reduced, estimated at 15-20%. The left ventricular diastolic function is grade I diastolic dysfunction. Right Ventricle Right ventricular chamber dimension is normal. Left Atria Left atrial chamber dimension is normal. Right Atria Right atrial chamber dimension is normal. Aortic Valve The aortic valve is trileaflet. There is mild aortic valve sclerosis. Pulmonic Valve The pulmonic valve is not well visualized. Mitral Valve The mitral valve has normal leaflets. There is no mitral valve regurgitation. Tricuspid Valve The tricuspid valve leaflets are normal. Pericardium/Pleural The pericardium appears normal. Aorta The aortic root size at the sinus of Valsalva is normal. Left Ventricular Outflow Tract Name Value Normal LVOT 2D LVOT Diameter 2.12 cm LVOT Doppler LVOT Peak Gradient 2 mmHg LVOT Mean Gradient 1 mmHg LVOT VTI 10.24 cm LVOT VTI/AV VTI Ratio 0.71 LVOT Stroke Volume 36.26 ml LVOT CO 2.69 l/min LVOT CI 0.94 L/min/m2 Pulmonic Valve Name Value Normal RVOT Doppler RVOT Peak Gradient 0 mmHg PV Doppler PV Peak Grad
[2022-11-07] MEDS: HYDROcodone/acetaminophen (*CRX) 5-325 MG TABLET 1 TAB PO ×2 (04:45→11:50)
[2022-11-07 05:39] LABS: Basophils Percent Auto 0.5 % (0.2-1.2); Eosinophils Absolute Auto 0.3 K/mm3 (0-0.3); Eosinophils Percent Auto 4.5 % (0-4.4); Hemoglobin 15.7 g/dL (14.0-18.0); Immature Granulocyte Absolute 0.01 K/mm3 (0.00-0.031); Immature Granulocyte Percent A 0.2 % (0-0.5); Lymphocytes Absolute Auto 1.52 K/mm3 (0.9-3.2); Lymphocytes Percent Auto 26.3 % (18.3-44.2); Mean Corpuscular HGB Conc 34.1 g/dl (32-36); Mean Corpuscular Hemoglobin 30.5 pg (26-34); Mean Corpuscular Volume 89.5 fl (80-100); Mean Platelet Volume 8.3 fl (7.4-10.4); Monocytes Absolute Auto 0.5 K/mm3 (0.1-0.6); Monocytes Percent Auto 9.3 % (2.6-8.5); Neutrophils Absolute Auto 3.4 K/mm3 (1.3-6.7); Neutrophils Percent Auto 59.2 % (45.5-73.1); Platelet Count Result 304 k/mm3 (150-375); Red Blood Count 5.14 M/mm3 (4.6-6.20); Red Cell Distribution Width 13.3 % (11.5-14.5); White Blood Count 5.8 K/mm3 (4.5-10.0)
[2022-11-07 05:49] LABS: Alanine Aminotransferase 23 U/L (6-50); Albumin Level 4.4 g/dL (3.5-5.1); Alkaline Phosphatase 54 U/L (38-126); Anion Gap 6 mmol/L (8-16); Aspartate Amino Transferase 31 U/L (17-59); Bilirubin,Total 1.1 mg/dL (0.2-1.3); Blood Urea Nitrogen 18 mg/dL (9-20); Calcium 9.3 mg/dL (8.4-10.2); Carbon Dioxide 30 mmol/L (22-30); Chloride 99 mmol/L (98-107); Estimated CRCL calculation 143 ml/min; Estimated Glomerular Filt Rate > 60; Glucose 110 mg/dL (65-110); Magnesium 2.1 mg/dL (1.6-2.3); Sodium 135 mmol/L (137-145)
[2022-11-07] MEDS: ASPIRIN 81 MG ENTERIC TABLET PO (08:43)
[2022-11-07] MEDS: carvediloL 6.25 MG TABLET PO ×2 (08:44→21:08)
--- NOTE | 2022-11-07 09:38 | WPDMODSED ---
Moderate Sedation Note-Pt Data Patient Data Diagnosis: Left ventricular systolic dysfunction left bundle branch block abnormal nuclear stress test Present Complaint: no complaints Procedure to be performed/Plan: left heart catheterization Allergies Allergy/AdvReac Type Severity Reaction Status Date / Time No Known Allergies Allergy Verified 11/03/22 23:56 Home Medications Medication Instructions Recorded Confirmed Type aspirin 81 mg capsule 81 mg PO DAILY 11/03/22 11/05/22 History hydrochlorothiazide 25 mg tablet 25 mg PO DAILY 11/03/22 11/05/22 History levocetirizine 5 mg tablet 5 mg PO DAILY 11/03/22 11/05/22 History losartan 50 mg tablet 50 mg PO DAILY 11/03/22 11/05/22 History omeprazole magnesium 20 mg 20 mg PO DAILY 11/03/22 11/05/22 History tablet,delayed release (Prilosec OTC) phentermine 37.5 mg tablet 37.5 mg PO DAILY 11/03/22 11/05/22 History vitamin B complex (B 1 tablet PO DAILY 11/03/22 11/05/22 History Complex-Vitamin B12 tablet) furosemide 40 mg tablet (Lasix) 40 mg PO DAILY #30 tabs 11/04/22 11/05/22 Rx potassium chloride 10 mEq 20 meq PO DAILY #30 caps 11/04/22 11/05/22 Rx capsule,extended release Current Medications: Active Medications Acetaminophen (Acetaminophen 325 Mg Tablet) 650 mg PO Q6H PRN PRN Reason: Mild Pain (1-3) or Fever Last Admin: 11/06/22 20:27 Dose: 650 mg Hydrocodone Bitart/Acetaminophen (Hydrocodone/Acetaminophen (*Crx) 5-325 Mg Tablet) 1 tab PO Q6H PRN PRN Reason: Pain Rated 4-6 Last Admin: 11/07/22 04:45 Dose: 1 tab Aspirin (Aspirin 81 Mg Enteric Tablet) 81 mg PO QAM [facility] Last Admin: 11/07/22 08:43 Dose: 81 mg Atorvastatin Calcium (Atorvastatin 40 Mg Tablet) 80 mg PO DAILY [facility] Carvedilol (Carvedilol 6.25 Mg Tablet) 6.25 mg PO Q12HR [facility] Last Admin: 11/07/22 08:44 Dose: 6.25 mg Enoxaparin Sodium (Enoxaparin 40 Mg/0.4 Ml Syringe) 40 mg SUB-Q DAILY [facility] Last Admin: 11/07/22 08:10 Dose: Not Given Furosemide (Furosemide 40 Mg Tablet) 40 mg PO DAILY [facility] Last Admin: 11/06/22 08:47 Dose: 40 mg Loratadine (Loratadine 10 Mg Tablet) 10 mg PO QAM [facility] Last Admin: 11/06/22 08:47 Dose: 10 mg Losartan Potassium (Losartan Potassium 50 Mg Tablet) 50 mg PO DAILY [facility] Last Admin: 11/06/22 08:46 Dose: 50 mg Morphine Sulfate (Morphine Sulfate (*Crx) 2 Mg/Ml Inj) 2 mg IV PUSH Q4H PRN PRN Reason: Pain Rated 7-10 Last Admin: 11/05/22 23:10 Dose: 2 mg Ondansetron HCl (Ondansetron Inj 4 Mg/2 Ml Vial) 4 mg IV PUSH Q4H PRN PRN Reason: Nausea Pantoprazole Sodium (Pantoprazole 40 Mg Tablet) 40 mg PO QAM [facility] Last Admin: 11/06/22 08:47 Dose: 40 mg Perflutren Lipid Microsphere (Perflutren Lipid Microspheres 1.5 Ml Vial Diluted To 10 Ml Total Volume) 0 ml IV PUSH ONCE PRN; Protocol PRN Reason: adequate visualization Stop: 11/07/22 21:21 Perflutren Lipid Microsphere (Perflutren Lipid Microspheres 1.5 Ml Vial Diluted To 10 Ml Total Volume) 0 ml IV PUSH ONCE PRN; Protocol PRN Reason: adequate visualization Stop: 11/08/22 15:19 Spironolactone (Spironolactone 25 Mg Tablet) 25 mg PO QAM [facility] Vitamin B Complex (Vitamin B Complex Capsule) 1 cap PO DAILY [facility] Last Admin: 11/06/22 08:46 Dose: 1 cap Sedation/Anesthesia: No previous sedation/anesthesia problems (including family history). [facility] Past Medical History Medical History Hypertension Obstructive sleep apnea on CPAP Surgical History Surgical History History of cardiac catheterization (2002) Clear coronary arteries. S/P cubital tunnel release Left. Family History Family History Sibling Diabetes mellitus Hodgkins lymphoma Mother Alzheimer's dementia Father Emphysema lung Acute myocardial infarction Social History Social History Social History: Jain
--- NOTE | 2022-11-07 10:10 | WPDCARDPROC ---
Cardiac Cath Procedure Note Date of procedure:: 11/07/22 Performing physician:: Ayo Betts MD Indication:: newly diagnosed left ventricular systolic dysfunction Brief clinical history:: this is a 62-year-old patient presented to the hospital with shortness of breath the patient is morbidly obese is been found to have a left bundle branch block and LV systolic dysfunction by nuclear stress testing. As a result of this angiography has been recommended. There is no previous history of coronary disease. Procedure Procedure performed:: Left ventriculogram coronary angiogram Angio-Seal to right femoral artery Sedation/Medication given:: fentanyl 25 mg Versed 1 mg case start time 9:43 a.m. case end time 10:05 a.m. sedation provided by Ivy Britt RN, trained observer Access site:: right femoral artery Estimated blood loss:: 30 cc Procedure note:: patient was brought to the cardiac catheterization lab in the postabsorptive state where the right femoral triangle was prepared and draped in the normal fashion. Anesthesia was provided with 1% lidocaine infiltrated locally. Using the modified Seldinger technique a 5 Syrian sheath was placed into the right femoral artery. After this left heart catheterization was carried out. I used a 5 Syrian angled pigtail catheter to measure left-sided hemodynamics as well as eject in BENNETT projection. Following this I advanced a JL 4 catheter to the aortic root. This catheter could not reach the left main ostium for proper engagement as the aortic arch was quite wide. A JL5 catheter was able to engage and inject the left coronary artery. I had JL 4 catheter was used to engage and inject the right coronary artery. Following this the case was terminated an angiogram was done of the femoral artery through the sheath after which an Angio-Seal device was deployed with a good hemostatic result. There were no apparent procedural complications. He left the catheterization lab in good condition with no evidence of groin hematoma. Findings:: Hemodynamics: Central aortic pressure is 140 over 84 left ventricle 140 over to end-diastolic 16 there is no gradient on pullback across the aortic valve. Left ventricle: Filling of the left ventricle was suboptimal with this catheter. The LV is quite large and markedly dilated there is severe global systolic hypocontractility I would grossly estimate the ejection fraction to be 20-25% although once again the ventricle was not well filled by this injection. The left main coronary artery is large in caliber and nicely patent the left anterior descending is a moderate caliber artery extending down to the apex the LAD and its branches have mild luminal irregularities but no angiographically significant coronary disease is identified. The circumflex is a medium caliber artery giving rise to the marginal branches. The largest OM branch has mild plaquing luminal irregularity but again no angiographically significant disease is identified. The right coronary artery is large in caliber and dominant to the posterior circulation. The RCA is quite tortuous between the 2nd and 3rd portion. in the 1st portion there is mild eccentric some plaque who with a stenosis of approximately 30-40%. In the 2nd portion of the RCA there appears to be about 40-50% stenosis just prior to very tortuous bend. The distal vessels/RPDA and PL branches are patent without significant disease. Conclusion:: 1. Right coronary dominant circulation with angiographically mild nonocclusive coronary disease as detailed above. 2. Left ventricular enlargement with severe global systolic dysfunction 3. false-positive nuclear stress test which was reportedly indicative of previous myocardial infarction. Likely false-positive owing to morbid obesity. Ayo Betts MD FACC
[2022-11-07] MEDS: SODIUM CHLORIDE 0.9% IV 1,000 ML 125 ML IV CONT (10:37)
[2022-11-07] MEDS: VITAMIN B COMPLEX CAPSULE 1 CAP PO (11:51)
[2022-11-07] MEDS: LORATADINE 10 MG TABLET PO (11:52)
[2022-11-07] MEDS: FUROSEMIDE 40 MG TABLET PO (11:52)
[2022-11-07] MEDS: ATORVASTATIN 40 MG TABLET 80 MG PO (11:52)
[2022-11-07] MEDS: SPIRONOLACTONE 25 MG TABLET PO (11:52)
[2022-11-07] MEDS: PANTOPRAZOLE 40 MG TABLET PO (11:52)
--- NOTE | 2022-11-07 13:19 | PM.IMPN ---
Progress Note: A&P Assessment and Plan (1) Atypical chest pain: Code(s): R07.89 - Other chest pain Status: Acute Assessment and Plan: The patient initially developed pain in the mid chest radiating to the left upper chest on Thursday evening while at home. He was seen in the [facility] in the ED and had 2 negative high sensitivity troponins. He was pain free after receiving aspirin and Toradol and he was discharged home to follow up with his primary care provider. He is not having any mid chest pain and she seems to now have more discomfort in the left shoulder as detailed in HPI. This pain he was having started hours after he lifted a 60 lb chain in throughout into his truck and it seems to be more musculoskeletal in etiology. However he does have a left bundle branch block on his EKG and has risk factors for heart disease thus he is being admitted overnight for close monitoring and Cardiology consultation. Stress test: 1. Moderate-sized, moderate severity infarct involving the left anterior descending coronary artery vascular distribution. 2. Separate smaller moderate severity infarct involving portion of the right coronary artery vascular distribution as detailed above. 3. No reversible ischemia. 4. Marked left ventricular enlargement and global hypokinesis resulting in moderately decreased left ventricular ejection fraction measuring 24%. Status post cardiac catheterization on 11/07/2022: 1.? ? Right coronary dominant circulation with angiographically mild nonocclusive coronary disease as detailed above. 2.? ? Left ventricular enlargement with severe global systolic dysfunction 3. ? false-positive nuclear stress test which was reportedly indicative of previous myocardial infarction.? Likely false-positive owing to morbid obesity. On aspirin carvedilol spironolactone and started on Entresto (2) Left shoulder pain: Code(s): M25.512 - Pain in left shoulder Status: Acute Assessment and Plan: Likely musculoskeletal in etiology as it is reproducible on exam. (3) Hypertension: Code(s): I10 - Essential (primary) hypertension Status: Acute Assessment and Plan: Blood pressure was as high as 180/105 in the emergency department but has improved with pain control (he was given Flexeril for the discomfort in his shoulder). Continue current doses of antihypertensives. Adjustments can be made depending on how he trends overnight. Abdomen he was started on furosemide a couple of days ago while he was in the ED but he requests being taken off of that as he is urinating quite a bit as he is also on hydrochlorothiazide. (4) Left bundle branch block: Code(s): I44.7 - Left bundle-branch block, unspecified Status: Acute Assessment and Plan: Unclear if this is old or new. Echocardiogram ordered. EF from stress test 24%. LifeVest order (5) Obstructive sleep apnea on CPAP: Code(s): G47.33 - Obstructive sleep apnea (adult) (pediatric); Z99.89 - Dependence on other enabling machines and devices Status: Acute Assessment and Plan: He is using his home CPAP unit Plan Upper back pain check x-ray Subjective Date/time seen: 11/07/22 13:19 Interval history: Patient underwent cardiac catheterization this a.m.. Findings noted below: Right coronary dominant circulation with angiographically mild non occlusive coronary disease Left ventricular enlargement with severe global systolic dysfunction. Draft the estimated EF 20-25%. Started on Entresto. Already on carvedilol and spironolactone Complains of left upper back pain Review of Systems Review of Systems: All systems reviewed & are unremarkable except as noted in HPI and below Exam Narrative: General: Well-developed, nontoxic-appearing male sitting up in bed in no distress. HEENT: PERRL, EOMI. Sclera anicteric. Oral mucosa moist. Crowded oropharynx. Neck: Supple. Exam limite
[2022-11-07] MEDS: PERFLUTREN LIPID MICROSPHERES 1.5 ML VIAL DILUTED TO 10 ML TOTAL VOLUME IV PUSH (13:48)
--- NOTE | 2022-11-07 13:49 | IVDEFINITY ---
Prior to administration of IV Definity the patient was educated on the risks and benefits of the imaging enhancing agent including potential adverse side effects. The patient verbalized understanding. Allergies were verified. No exclusion criteria were identified and at least one of the following inclusion criteria were met: 1) physician request, 2) patient technically difficult to image (per the [place] [employer] guidelines of two or more segments not discernable within the apical view), or 3) questionable left ventricular function. ?
[2022-11-07] MEDS: IBUPROFEN 600 MG TABLET PO ×2 (15:07→21:08)
[2022-11-07] MEDS: SACUBITRIL/VALSARTAN 24-26 MG TABLET 1 TAB PO (21:08)
[2022-11-08] VITALS (17 sets, daily range): BP systolic 125–146; BP diastolic 79–91; PULSE 61–86; RESP 14–20; TEMP 36.2–36.5; O2SAT 96–99
[2022-11-08] MEDS: HYDROcodone/acetaminophen (*CRX) 5-325 MG TABLET 1 TAB PO ×2 (00:24→14:19)
[2022-11-08 04:54] LABS: Basophils Percent Auto 0.3 % (0.2-1.2); Eosinophils Absolute Auto 0.3 K/mm3 (0-0.3); Eosinophils Percent Auto 4.8 % (0-4.4); Hematocrit 43.9 % (42.0-52.0); Hemoglobin 14.8 g/dL (14.0-18.0); Immature Granulocyte Absolute 0.01 K/mm3 (0.00-0.031); Immature Granulocyte Percent A 0.2 % (0-0.5); Lymphocytes Absolute Auto 1.51 K/mm3 (0.9-3.2); Lymphocytes Percent Auto 25.9 % (18.3-44.2); Mean Corpuscular HGB Conc 33.7 g/dl (32-36); Mean Corpuscular Hemoglobin 30.7 pg (26-34); Mean Corpuscular Volume 91.1 fl (80-100); Mean Platelet Volume 8.5 fl (7.4-10.4); Monocytes Absolute Auto 0.5 K/mm3 (0.1-0.6); Monocytes Percent Auto 8.2 % (2.6-8.5); Neutrophils Absolute Auto 3.5 K/mm3 (1.3-6.7); Neutrophils Percent Auto 60.6 % (45.5-73.1); Platelet Count Result 270 k/mm3 (150-375); Red Blood Count 4.82 M/mm3 (4.6-6.20); Red Cell Distribution Width 13.2 % (11.5-14.5); White Blood Count 5.8 K/mm3 (4.5-10.0)
[2022-11-08 05:06] LABS: Alanine Aminotransferase 20 U/L (6-50); Albumin Level 3.9 g/dL (3.5-5.1); Alkaline Phosphatase 57 U/L (38-126); Anion Gap 6 mmol/L (8-16); Aspartate Amino Transferase 21 U/L (17-59); Bilirubin,Total 1.1 mg/dL (0.2-1.3); Blood Urea Nitrogen 21 mg/dL (9-20); Calcium 8.6 mg/dL (8.4-10.2); Carbon Dioxide 27 mmol/L (22-30); Chloride 102 mmol/L (98-107); Estimated CRCL calculation 126 ml/min; Estimated Glomerular Filt Rate > 60; Glucose 113 mg/dL (65-110); Magnesium 2.2 mg/dL (1.6-2.3); Potassium 3.8 mmol/L (3.4-5.0); Sodium 135 mmol/L (137-145)
[2022-11-08] MEDS: IBUPROFEN 600 MG TABLET PO ×3 (05:30→18:36)
[2022-11-08] MEDS: VITAMIN B COMPLEX CAPSULE 1 CAP PO (09:55)
[2022-11-08] MEDS: PANTOPRAZOLE 40 MG TABLET PO (09:55)
[2022-11-08] MEDS: LORATADINE 10 MG TABLET PO (09:55)
[2022-11-08] MEDS: SACUBITRIL/VALSARTAN 24-26 MG TABLET 1 TAB PO ×2 (09:55→21:16)
[2022-11-08] MEDS: carvediloL 6.25 MG TABLET PO ×2 (09:56→21:16)
[2022-11-08] MEDS: SPIRONOLACTONE 25 MG TABLET PO (09:56)
[2022-11-08] MEDS: ASPIRIN 81 MG ENTERIC TABLET PO (09:56)
[2022-11-08] MEDS: ATORVASTATIN 40 MG TABLET 80 MG PO (09:56)
[2022-11-08] MEDS: FUROSEMIDE 40 MG TABLET PO (09:56)
--- NOTE | 2022-11-08 10:20 | PM.PNCARD ---
Progress Note: A&P Assessment and Plan (1) Cardiomyopathy: Code(s): I42.9 - Cardiomyopathy, unspecified Status: Acute Plan 62-year-old man with: New diagnosis of heart failure with reduced ejection fraction. He appears to have a nonischemic cardiomyopathy based on coronary angiography findings from yesterday. He is on starting doses of carvedilol Entresto and spironolactone which is a good starting point for his medical therapy. Hopefully he will receive his life vest today and if he does he can be discharged outpatient follow-up for medical titration will be arranged for our office with Dr. Martínez. Ayo Betts MD [facility] Subjective Date/time seen: Date of service: 11/08/22 10:20 Interval history: Follow-up visit in this 62-year-old man with: Newly diagnosed heart failure with reduced ejection fraction. Patient also has left bundle branch block. Catheterization yesterday demonstrates modest nonobstructive coronary artery disease. He has been started on guideline directed medical therapy he is asymptomatic today and feels well. LifeVest has been ordered and has not yet been received. Patient hopeful to be discharged later today Exam Const: Other: Obese man no apparent distress appears to be in good spirits HENMT: Mouth: Yes moist mucous membranes Eyes: Sclera: sclerae normal Pupils: Equal, round and reactive pupils present Neck: Neck: supple and no JVD Resp: Effort & Inspection: normal respiratory effort Auscultation: clear to auscultation bilaterally Cardio: Rate: regular rate Rhythm: regular rhythm Other: PMI is not palpable because of his body habitus no audible gallop or murmur GI: GI Palp: Yes Soft to palpation Auscultation: normal bowel sounds Skin: General skin exam: normal color Neuro: Other: Alert and oriented x3 Extrem: Other: Adequate perfusion, no peripheral edema Objective Data Vital Signs Vital Signs: Vital Signs - 24 hr 11/07/22 10:30 11/07/22 10:45 11/07/22 11:00 Temperature Pulse Rate 72 72 77 Respiratory Rate 19 18 16 Blood Pressure 128/89 135/86 146/88 H Pulse Oximetry 96 97 96 Oxygen Delivery Room Air Room Air Room Air 11/07/22 11:04 11/07/22 12:00 11/07/22 12:30 Temperature 36.3 C L Pulse Rate 86 96 Respiratory Rate 20 Blood Pressure 124/79 Pulse Oximetry 98 Oxygen Delivery Room Air 11/07/22 12:00 11/07/22 13:14 11/07/22 14:00 Temperature 36.4 C L Pulse Rate 87 78 79 Respiratory Rate 18 Blood Pressure 139/84 Pulse Oximetry 98 Oxygen Delivery 11/07/22 16:38 11/07/22 16:00 11/07/22 16:00 Temperature 36.3 C L Pulse Rate 80 85 Respiratory Rate 20 Blood Pressure 127/89 Pulse Oximetry 97 Oxygen Delivery Room Air 11/07/22 18:00 11/07/22 20:00 11/07/22 21:08 Temperature 36.6 C Pulse Rate 78 68 74 Respiratory Rate 18 Blood Pressure 135/81 Pulse Oximetry 97 Oxygen Delivery 11/07/22 20:00 11/07/22 20:00 11/07/22 22:00 Temperature Pulse Rate 71 67 Respiratory Rate Blood Pressure Pulse Oximetry 97 Oxygen Delivery Room Air 11/07/22 23:28 11/07/22 23:43 11/08/22 00:00 Temperature 36.1 C L Pulse Rate 71 70 79 Respiratory Rate 16 Blood Pressure 142/88 H Pulse Oximetry 97 97 Oxygen Delivery 11/08/22 00:00 11/08/22 02:29 11/08/22 02:00 Temperature Pulse Rate 69 65 Respiratory Rate Blood Pressure Pulse Oximetry 97 98 Oxygen Delivery Room Air 11/08/22 04:00 11/08/22 04:00 11/08/22 04:00 Temperature 36.3 C L Pulse Rate 64 63 Respiratory Rate 14 Blood Pressure 133/87 Pulse Oximetry 97 96 Oxygen Delivery Room Air 11/08/22 06:00 11/08/22 08:00 11/08/22 08:00 Temperature 36.2 C L Pulse Rate 74 68 77 Respiratory Rate 16 Blood Pressure 146/91 H Pulse Oximetry 98 Oxygen Delivery 11/08/22 09:56 Temperature Pulse Rate 71 Respiratory Rate Blood Pressure Pulse Oximetry Oxygen Delive
--- NOTE | 2022-11-08 11:24 | PM.IMPN ---
Progress Note: A&P Assessment and Plan (1) Atypical chest pain: Code(s): R07.89 - Other chest pain Status: Acute Assessment and Plan: The patient initially developed pain in the mid chest radiating to the left upper chest on Thursday evening while at home. He was seen in the [facility] in the ED and had 2 negative high sensitivity troponins. He was pain free after receiving aspirin and Toradol and he was discharged home to follow up with his primary care provider. He is not having any mid chest pain and she seems to now have more discomfort in the left shoulder as detailed in HPI. This pain he was having started hours after he lifted a 60 lb chain in throughout into his truck and it seems to be more musculoskeletal in etiology. However he does have a left bundle branch block on his EKG and has risk factors for heart disease thus he is being admitted overnight for close monitoring and Cardiology consultation. Stress test: 1. Moderate-sized, moderate severity infarct involving the left anterior descending coronary artery vascular distribution. 2. Separate smaller moderate severity infarct involving portion of the right coronary artery vascular distribution as detailed above. 3. No reversible ischemia. 4. Marked left ventricular enlargement and global hypokinesis resulting in moderately decreased left ventricular ejection fraction measuring 24%. Status post cardiac catheterization on 11/07/2022: 1.? ? Right coronary dominant circulation with angiographically mild nonocclusive coronary disease as detailed above. 2.? ? Left ventricular enlargement with severe global systolic dysfunction 3. ? false-positive nuclear stress test which was reportedly indicative of previous myocardial infarction.? Likely false-positive owing to morbid obesity. On aspirin carvedilol spironolactone and started on Entresto (2) Left shoulder pain: Code(s): M25.512 - Pain in left shoulder Status: Acute Assessment and Plan: Likely musculoskeletal in etiology as it is reproducible on exam. X-ray back with mild arthritis (3) Hypertension: Code(s): I10 - Essential (primary) hypertension Status: Acute Assessment and Plan: Blood pressure was as high as 180/105 in the emergency department but has improved with pain control (he was given Flexeril for the discomfort in his shoulder). Continue current doses of antihypertensives. Adjustments can be made depending on how he trends overnight. Abdomen he was started on furosemide a couple of days ago while he was in the ED but he requests being taken off of that as he is urinating quite a bit as he is also on hydrochlorothiazide. Blood pressure stable on Entresto spironolactone. Hydrochlorothiazide stopped at discharge (4) Left bundle branch block: Code(s): I44.7 - Left bundle-branch block, unspecified Status: Acute Assessment and Plan: Unclear if this is old or new. Echocardiogram ordered. EF from stress test 24%. LifeVest order pending fitting (5) Obstructive sleep apnea on CPAP: Code(s): G47.33 - Obstructive sleep apnea (adult) (pediatric); Z99.89 - Dependence on other enabling machines and devices Status: Acute Assessment and Plan: He is using his home CPAP unit Plan Upper back pain x-ray with mild arthritis Subjective Date/time seen: 11/08/22 11:24 Interval history: No overnight events. Breathing well. No chest pain. Upper back pain persists Motrin helps. Awaiting LifeVest. Review of Systems Review of Systems: All systems reviewed & are unremarkable except as noted in HPI and below Exam Narrative: General: Well-developed, nontoxic-appearing male sitting up in bed in no distress. HEENT: PERRL, EOMI. Sclera anicteric. Oral mucosa moist. Crowded oropharynx. Neck: Supple. Exam limited due to neck circumference. No obvious JVD or bruits. Respiratory: Lungs are clear to auscultation bilater
[2022-11-09] VITALS (16 sets, daily range): BP systolic 118–153; BP diastolic 78–98; PULSE 61–86; RESP 16–20; TEMP 36.1–36.5; O2SAT 96–99
[2022-11-09] MEDS: HYDROcodone/acetaminophen (*CRX) 5-325 MG TABLET 1 TAB PO ×3 (03:27→19:59)
[2022-11-09] MEDS: LORATADINE 10 MG TABLET PO (09:24)
[2022-11-09] MEDS: SACUBITRIL/VALSARTAN 24-26 MG TABLET 1 TAB PO ×2 (09:24→19:59)
[2022-11-09] MEDS: SPIRONOLACTONE 25 MG TABLET PO (09:24)
[2022-11-09] MEDS: ATORVASTATIN 40 MG TABLET 80 MG PO (09:24)
[2022-11-09] MEDS: VITAMIN B COMPLEX CAPSULE 1 CAP PO (09:25)
[2022-11-09] MEDS: carvediloL 6.25 MG TABLET PO ×2 (09:25→19:59)
[2022-11-09] MEDS: PANTOPRAZOLE 40 MG TABLET PO (09:25)
[2022-11-09] MEDS: FUROSEMIDE 40 MG TABLET PO (09:25)
[2022-11-09] MEDS: ASPIRIN 81 MG ENTERIC TABLET PO (09:25)
[2022-11-09] MEDS: IBUPROFEN 600 MG TABLET PO ×2 (09:28→15:29)
--- NOTE | 2022-11-09 10:18 | PM.PNCARD ---
Progress Note: A&P Assessment and Plan (1) Cardiomyopathy: Code(s): I42.9 - Cardiomyopathy, unspecified Status: Acute Plan 62-year-old man with nonischemic cardiomyopathy he is on initial doses of carvedilol Entresto and spironolactone. He is clinically stable and well compensated. He is expecting to receive life vest device tomorrow after that occurs he can be discharged and outpatient follow-up will occur in our office with Dr. Martínez. Ayo Betts MD [facility] Subjective Date/time seen: Date of service: 11/09/22 10:18 Interval history: Follow-up visit in this 62-year-old man with: Newly diagnosed heart failure with reduced ejection fraction. Workup is complete patient has significant nonischemic cardiomyopathy. He is on guideline directed medical therapy doing well and is asymptomatic. Ongoing hospitalization is awaiting arrival of life vest device. He feels well visiting with family does not have any other complaints today. Exam Const: Other: Pleasant obese white male no apparent distress HENMT: Mouth: Yes moist mucous membranes Eyes: Sclera: sclerae normal Neck: Neck: supple and no JVD Resp: Effort & Inspection: normal respiratory effort Auscultation: clear to auscultation bilaterally Cardio: Rate: regular rate Rhythm: regular rhythm Other: PMI is not palpable because of his size no audible murmur GI: GI Palp: Yes Soft to palpation Auscultation: normal bowel sounds Neuro: Other: Alert and oriented x3 Extrem: Other: Good distal perfusion, no significant Objective Data Vital Signs Vital Signs: Vital Signs - 24 hr 11/08/22 12:00 11/08/22 12:00 11/08/22 12:00 Temperature 36.3 C L Pulse Rate 86 77 86 Respiratory Rate 18 18 Blood Pressure 131/83 Pulse Oximetry 96 96 Oxygen Delivery Room Air 11/08/22 14:00 11/08/22 15:40 11/08/22 16:00 Temperature 36.5 C Pulse Rate 77 77 72 Respiratory Rate 18 Blood Pressure 125/79 Pulse Oximetry 99 Oxygen Delivery Room Air 11/08/22 16:00 11/08/22 18:00 11/08/22 20:00 Temperature 36.3 C L Pulse Rate 75 71 70 Respiratory Rate 20 Blood Pressure 125/88 Pulse Oximetry 96 Oxygen Delivery 11/08/22 21:16 11/08/22 23:51 11/08/22 20:00 Temperature 36.3 C L Pulse Rate 70 61 70 Respiratory Rate 20 Blood Pressure 133/91 H Pulse Oximetry 96 Oxygen Delivery 11/08/22 20:00 11/08/22 22:00 11/09/22 00:00 Temperature Pulse Rate 61 63 Respiratory Rate Blood Pressure Pulse Oximetry 96 Oxygen Delivery Room Air 11/09/22 00:00 11/09/22 02:00 11/09/22 03:55 Temperature 36.3 C L Pulse Rate 61 65 Respiratory Rate 20 Blood Pressure 118/78 Pulse Oximetry 96 96 Oxygen Delivery Room Air 11/09/22 04:00 11/09/22 04:00 11/09/22 06:00 Temperature Pulse Rate 70 67 Respiratory Rate Blood Pressure Pulse Oximetry 96 Oxygen Delivery Room Air 11/09/22 08:00 11/09/22 09:25 11/09/22 08:00 Temperature 36.3 C L Pulse Rate 79 78 78 Respiratory Rate 16 16 Blood Pressure 146/92 H Pulse Oximetry 97 97 Oxygen Delivery Room Air Intake/Output Intake/Output: Intake & Output 11/06/22 11/07/22 11/08/22 11/09/22 23:59 23:59 23:59 23:59 Intake Total 990 2020 2280 660 Output Total 900 325 150 Balance 90 1695 2280 510 Meds/Results Medications: Active Medications Generic Name Dose Route Start Last Admin Trade Name Freq PRN Reason Stop Dose Admin Acetaminophen 650 mg 11/05/22 21:21 11/06/22 20:27 Acetaminophen 325 Mg Tablet PO 650 mg Q6H PRN Administration Mild Pain (1-3) or Fever Hydrocodone Bitart/Acetaminophen 1 tab 11/05/22 22:02 11/09/22 03:27 Hydrocodone/Acetaminophen (*Crx) 5-325 Mg Tablet PO 1 tab Q6H PRN Administration Pain Rated 4-6 Aspirin 81 mg 11/06/22 09:00 11/09/22 09:25 Aspirin 81 Mg Enteric Tablet PO 81 mg QAM DINESH Administration Atorvastatin Calcium 80 mg 11/07
--- NOTE | 2022-11-09 13:16 | PC.NURSE ---
This patient, David Bolaños, was transferred to [address] ] on 11/09/22 at 1316. Personal belongings sent with patient. Report given to [JANIS Chilel]. Appropriate documentation sent with patient.
--- NOTE | 2022-11-09 13:35 | PC.NURSE ---
This patient, David Bolaños, was received from IMU on 11/09/22 at 1335. Report received from Holly. Patient/family oriented to unit policies and routines
--- NOTE | 2022-11-09 13:56 | PM.IMPN ---
Progress Note: A&P Assessment and Plan (1) Atypical chest pain: Code(s): R07.89 - Other chest pain Status: Acute Assessment and Plan: The patient initially developed pain in the mid chest radiating to the left upper chest on Thursday evening while at home. He was seen in the [facility] in the ED and had 2 negative high sensitivity troponins. He was pain free after receiving aspirin and Toradol and he was discharged home to follow up with his primary care provider. He is not having any mid chest pain and she seems to now have more discomfort in the left shoulder as detailed in HPI. This pain he was having started hours after he lifted a 60 lb chain in throughout into his truck and it seems to be more musculoskeletal in etiology. However he does have a left bundle branch block on his EKG and has risk factors for heart disease thus he is being admitted overnight for close monitoring and Cardiology consultation. Stress test: 1. Moderate-sized, moderate severity infarct involving the left anterior descending coronary artery vascular distribution. 2. Separate smaller moderate severity infarct involving portion of the right coronary artery vascular distribution as detailed above. 3. No reversible ischemia. 4. Marked left ventricular enlargement and global hypokinesis resulting in moderately decreased left ventricular ejection fraction measuring 24%. Status post cardiac catheterization on 11/07/2022: 1.? ? Right coronary dominant circulation with angiographically mild nonocclusive coronary disease as detailed above. 2.? ? Left ventricular enlargement with severe global systolic dysfunction 3. ? false-positive nuclear stress test which was reportedly indicative of previous myocardial infarction.? Likely false-positive owing to morbid obesity. On aspirin carvedilol spironolactone and started on Entresto (2) Left shoulder pain: Code(s): M25.512 - Pain in left shoulder Status: Acute Assessment and Plan: Likely musculoskeletal in etiology as it is reproducible on exam. X-ray back with mild arthritis (3) Hypertension: Code(s): I10 - Essential (primary) hypertension Status: Acute Assessment and Plan: Blood pressure was as high as 180/105 in the emergency department but has improved with pain control (he was given Flexeril for the discomfort in his shoulder). Continue current doses of antihypertensives. Adjustments can be made depending on how he trends overnight. Abdomen he was started on furosemide a couple of days ago while he was in the ED but he requests being taken off of that as he is urinating quite a bit as he is also on hydrochlorothiazide. Blood pressure stable on Entresto spironolactone. Hydrochlorothiazide stopped at discharge (4) Left bundle branch block: Code(s): I44.7 - Left bundle-branch block, unspecified Status: Acute Assessment and Plan: Unclear if this is old or new. Echocardiogram ordered. EF from stress test 24%. LifeVest order pending fitting (5) Obstructive sleep apnea on CPAP: Code(s): G47.33 - Obstructive sleep apnea (adult) (pediatric); Z99.89 - Dependence on other enabling machines and devices Status: Acute Assessment and Plan: He is using his home CPAP unit Plan Upper back pain x-ray with mild arthritis Subjective Date/time seen: 11/09/22 13:56 Interval history: No overnight events. Awaiting LifeVest. Continues to have pain in his upper back. Add Motrin helps. Denies shortness of breath or chest pain or cough. Review of Systems Review of Systems: All systems reviewed & are unremarkable except as noted in HPI and below Exam Narrative: General: Well-developed, nontoxic-appearing male sitting up in bed in no distress. HEENT: PERRL, EOMI. Sclera anicteric. Oral mucosa moist. Crowded oropharynx. Neck: Supple. Exam limited due to neck circumference. No obvious JVD or bruits. Respiratory
[2022-11-10] VITALS: PULSE 59
[2022-11-10] MEDS: HYDROcodone/acetaminophen (*CRX) 5-325 MG TABLET 1 TAB PO ×2 (03:12→09:50)
[2022-11-10 03:21] VITALS: BP 130/83; PULSE 63; RESP 20; TEMP 36.3; O2SAT 96
[2022-11-10 04:00] VITALS: PULSE 65
[2022-11-10] MEDS: IBUPROFEN 600 MG TABLET PO ×2 (06:02→14:01)
[2022-11-10 08:00] VITALS: BP 134/86; PULSE 74; PULSE 77; RESP 18; TEMP 36.4; O2SAT 98
[2022-11-10] MEDS: SACUBITRIL/VALSARTAN 24-26 MG TABLET 1 TAB PO (08:30)
[2022-11-10] MEDS: PANTOPRAZOLE 40 MG TABLET PO (08:30)
[2022-11-10] MEDS: ASPIRIN 81 MG ENTERIC TABLET PO (08:30)
[2022-11-10] MEDS: VITAMIN B COMPLEX CAPSULE 1 CAP PO (08:30)
[2022-11-10 08:31] VITALS: PULSE 64
[2022-11-10] MEDS: carvediloL 6.25 MG TABLET PO (08:31)
[2022-11-10] MEDS: ATORVASTATIN 40 MG TABLET 80 MG PO (08:32)
[2022-11-10] MEDS: SPIRONOLACTONE 25 MG TABLET PO (08:32)
[2022-11-10] MEDS: LORATADINE 10 MG TABLET PO (08:32)
[2022-11-10] MEDS: FUROSEMIDE 40 MG TABLET PO (08:32)
[2022-11-10 12:00] VITALS: BP 148/90; PULSE 71; PULSE 81; RESP 18; TEMP 36.4; O2SAT 99
--- NOTE | 2022-11-10 12:58 | P.CDI_ITS ---
CDI Query Clarified Diagnosis Clarified Diagnosis: Elevated BNP on 11/04/22 lab work. Patient receiving Lasix and Entresto. HF noted on Cardiology progress note. Please specify type and acuity of heart failure if known. * Acute * Chronic * Acute on Chronic * Unknown * Systolic * Diastolic * Combined Systolic and Diastolic * Unknown <Page Marrufo RN - Last Filed: 11/10/22 13:04> Provider Comments Acute combined systolic and diastolic heart failure <Mason Harding MD - Last Filed: 11/10/22 16:11>
--- NOTE | 2022-11-10 12:58 | WPDCDIQUERY2 ---
CDI Query Clarified Diagnosis Clarified Diagnosis: Elevated BNP on 11/04/22 lab work. Patient receiving Lasix and Entresto. HF noted on Cardiology progress note. Please specify type and acuity of heart failure if known. Acute Chronic Acute on Chronic Unknown Systolic Diastolic Combined Systolic and Diastolic Unknown <Page Marrufo RN - Last Filed: 11/10/22 13:04> Provider Comments Acute combined systolic and diastolic heart failure <Mason Harding MD - Last Filed: 11/10/22 16:11>
--- NOTE | 2022-11-10 13:57 | PM.DS ---
DS: Admitting Diagnosis Discharge Date 11/10/2022 Admitting Diagnosis Chest pain DS: Discharge Diagnosis Discharge Diagnosis (1) Atypical chest pain: Code(s): R07.89 - Other chest pain Status: Acute (2) Left shoulder pain: Code(s): M25.512 - Pain in left shoulder Status: Acute (3) Hypertension: Code(s): I10 - Essential (primary) hypertension Status: Acute (4) Left bundle branch block: Code(s): I44.7 - Left bundle-branch block, unspecified Status: Acute (5) Obstructive sleep apnea on CPAP: Code(s): G47.33 - Obstructive sleep apnea (adult) (pediatric); Z99.89 - Dependence on other enabling machines and devices Status: Acute DS: Summary Hospital Course Hospital Course: # atypical chest pain: The patient initially developed pain in the mid chest radiating to the left upper chest on Thursday evening while at home. He was seen in the [facility] in the ED and had 2 negative high sensitivity troponins. He was pain free after receiving aspirin and Toradol and he was discharged home to follow up with his primary care provider. He is not having any mid chest pain and she seems to now have more discomfort in the left shoulder as detailed in HPI. This pain he was having started hours after he lifted a 60 lb chain in throughout into his truck and it seems to be more musculoskeletal in etiology. However he does have a left bundle branch block on his EKG and has risk factors for heart disease thus he is being admitted overnight for close monitoring and Cardiology consultation. He underwent stress test. Stress test: 1. Moderate-sized, moderate severity infarct involving the left anterior descending coronary artery vascular distribution. 2. Separate smaller moderate severity infarct involving portion of the right coronary artery vascular distribution as detailed above. 3. No reversible ischemia. 4. Marked left ventricular enlargement and global hypokinesis resulting in moderately decreased left ventricular ejection fraction measuring 24%. Status post cardiac catheterization on 11/07/2022: 1.? ? Right coronary dominant circulation with angiographically mild nonocclusive coronary disease as detailed above. 2.? ? Left ventricular enlargement with severe global systolic dysfunction 3. ? false-positive nuclear stress test which was reportedly indicative of previous myocardial infarction.? Likely false-positive owing to morbid obesity. On aspirin carvedilol spironolactone and started on Entresto which will be continued as outpatient basis Because of new cardiomyopathy. LifeVest was recommended and arranged before the discharge. # left shoulder pain/upper back pain: Likely musculoskeletal in etiology as it is reproducible on exam. X-ray back with mild arthritis. Lavalette and ibuprofen p.r.n. follow-up with PCP # hypertension: Blood pressure was as high as 180/105 in the emergency department but has improved with pain control (he was given Flexeril for the discomfort in his shoulder). Continue current doses of antihypertensives.? Adjustments can be made depending on how he trends overnight. Abdomen he was started on furosemide a couple of days ago while he was in the ED but he requests being taken off of that as he is urinating quite a bit as he is also on hydrochlorothiazide. Blood pressure stable on Entresto spironolactone.? Hydrochlorothiazide stopped at discharge # left bundle branch block: Unclear if this is old or new. Echocardiogram ordered.? EF from stress test 24%.? LifeVest order pending fitting # obstructive sleep apnea on CPAP: He is using his home CPAP unit Time Spent with Patient Time attestation: Total time spent providing and/or coordinating discharge services: 45 minutes Exam Narrative: General: Well-developed, nontoxic-appearing male sitting up in bed in no distress. HEENT: PERRL, EOMI. Sclera anicteric. Oral mucosa moist. Crowded oropharynx. Neck:
== END 2022-11-10 16:15 | disposition home or self-care (01) | DRG 286 ==
LOC: ANHED 13:17 → ANHIMU 18:27 → ANH2MED 11-09 21:04 → ANHIMU 11-12 06:23
PROVIDERS: Internal Medicine; Physician Assistant; Specialist; Admitting Provider Student in an Organized Health Care Education/Training Program; Emergency Provider Emergency Medicine; PCP Family Medicine; Visit Provider Internal Medicine
PROC: 4A023N7 Measurement of Cardiac Sampling and Pressure, Left Heart, Percutaneous Approach (ICD-10-PCS; CPT 93452; principal; 2022-11-07 09:30)
PROC: 4A023N7 Measurement of Cardiac Sampling and Pressure, Left Heart, Percutaneous Approach (ICD-10-PCS; 2022-11-07 09:30)
DX: R07.89 Other chest pain (principal); I50.41 Acute combined systolic (congestive) and diastolic (congestive) heart failure; I42.8 Other cardiomyopathies; Z68.41 Body mass index [BMI] 40.0-44.9, adult; I25.10 Atherosclerotic heart disease of native coronary artery without angina pectoris; I11.0 Hypertensive heart disease with heart failure; M25.512 Pain in left shoulder; I44.7 Left bundle-branch block, unspecified; G47.33 Obstructive sleep apnea (adult) (pediatric); K21.9 Gastro-esophageal reflux disease without esophagitis; E66.01 Morbid (severe) obesity due to excess calories
CPT/HCPCS: 36415; 71046; 72070; 78452; 80048; 80053; 80061; 82948; 83036; 83690; 83735; 84443; 84484; 85025; 85027; 85610; 85730; 93005; 93017; 93458; 94660; 99285; A9270; A9502; C1760; C1887; C1894; C8929; G0269; J1644; J1650; J2250; J2270; J2785; J3010; J7030; J7040; Q9957

== ENCOUNTER 2023-05-20 08:00 | Outpatient (RCR) | payer OTHER, SELFPAY | END 2023-05-21 23:59 | disposition home or self-care (01) | PROVIDERS: PCP Family Medicine; Visit Provider Internal Medicine | DX: I50.9 Heart failure, unspecified (principal) | CPT/HCPCS: 93798 ==

== ENCOUNTER 2023-06-08 08:00 | Outpatient (RCR) | payer OTHER, SELFPAY | END 2023-06-15 08:15 | disposition home or self-care (01) | PROVIDERS: PCP Family Medicine; Visit Provider Internal Medicine | DX: I50.9 Heart failure, unspecified (principal) | CPT/HCPCS: 93798 ==

== ENCOUNTER 2025-06-27 15:16 | Emergency (ER) | payer MEDICARE, SELFPAY ==
--- OUTSIDE RECORDS SUMMARY | 2025-06-26 09:30 | XMS_ITS | Encounter Summary ---
Author Organization [facility] Address [address] [place] [address] Care Team Providers Care Shampoo Technician Name Role Phone Michael Rizo MD Primary Care Provider [phone] Reason for Visit * Reason Comments Follow-up Patient would like t o discuss weight loss options. Flu Vaccine Patient does not do flu shot. Encounter Details Date Type Department Care Team ([facility] Contact Info) Description 06/26/2025 9:30 AM [employer] REPRESENTATIVE Office Visit [facility] [address] [place] [address] Michael Rizo MD [address] [place] [id number] Colon cancer screening (Primary Dx); LILI (obstructive sleep apnea); Presence of biventricular automatic cardioverter/defibrilla tor (AICD); Morbid obesity with BMI of 45.0-49.9, adult (HCC); BMI 45.0-49.9, adult (HCC); Essential hypertension; Heart failure with reduced ejection fraction; Primary osteoarthritis involving multiple joints Social History Tobacco Use Types Packs/Day Years Used Date Smoking Tobacco: Never Smokeless Tobacco: Never Tobacco Cessation:Counseling Given: Not Answered Alcohol Use Standard Drinks/Week Comments Yes 0 (1 standard drink = 0.6 oz pur e alcohol) AUDIT-C Answer Date Recorded Frequency of Alcohol Consumption Not on file 04/15/2023 Q2: How many drinks containi ng alcohol do you have on a typical day when you are drinking? Patient does not drink Frequency of Binge Drinking Not on file 03/21 PHQ-2 Answer Date Recorded PHQ-2 Total Score (If total score is 3 or more points, staff should administer the PHQ-9) 0 06/26/2025 Personal Safety Answer Date Recorded Have you ever been in or are you currently in a harmful physical or emotional relationship or is someone making you feel afraid or unsafe? 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 Gender Identity Not on file Sexual Orientation Not on file documented as of this encounter Last Filed Vital Signs Vital Sign Reading Time Taken Comments Blood Pressure 124/78 06/26/2025 9:04 AM [employer] EM[employer] REPRESENTATIVE Pulse 75 06/26/2025 9:04 AM [employer] EM[employer]MENT REPRESENTATIVE Temperature 36.7 C (98 F) 06/26/2025 9:04 AM [employer] EMPLOYMENT REPRESENTATIVE Respiratory Rate 18 06/26/2025 9:04 AM [employer] EM[employer]MENT REPRESENTATIVE Oxygen Saturation 98% 06/26/2025 9:04 AM [employer] REPRESENTATIVE room air Inhaled Oxygen Concentration - - Weight 153.8 kg (339 lb) 06/26/2025 9:04 AM [employer] EMPLOYMENT REPRESENTATIVE Height 182.9 cm (6' 0.01) 06/26/2025 9:04 AM CS T Body Mass Index 45.97 06/26/2025 9:04 AM VET[employer] EM[employer]OYMENT REPRESENTATIVE documented in this encounter Functional Status * In the past year, patient experienced: Question Answer Date of Assessment Author One or more falls in the last year 0 2024 9:07 AM V[employer] EM[employer]OY[employer] REPRESENTATIVE Vilma Mccarthy CMA * BP Location Answer Date of Assessment Author Left arm 06/26/2025 9:04 AM Emeterio Dale CMA * BP Location Answer Date of Assessment Author Left arm 06/26/2025 9:04 AM Emeterio Dale CMA documented as of this encounter Ordered Prescriptions Prescription Sig Dispense Quantity Refills Last Filled Start Date End Date tirzepatide, weight loss, (Zepbound) 2.5 mg/0.5 mL pen injectorIndications :obstructive sleep apnea syndrome Inject 0.5 mL (2.5 mg total) under the skin once a week 2 mL 1 06/26/2025 documented in this encounter Progress Notes * Michael Rizo MD - 06/26/2025 9:30 AM CST Images from the original note were not included. [facility] Chief Complaint. Chief Complaint Patient presents with Follow-up Patient would like to discuss weight loss options. Flu Vaccine Patient does not do flu shot. HPI. Patient is a 65 y.o. male Mr. Bolaños presents to clinic for f/u exam. Patient continues on management for ischemic cardiomyopathy and regular interrogation fo pacemaker/defibrillator. Patient continues on nightly positive pressure therapy and will follow response. NOtes improved energy. Decreased daytime fatigue. 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 Noting increased left knee pain with walking on the stairs and climbing with janitors. No increased PND, no orthopnea. Continues on BPH and continues on tamsulosin. No gross hematuria. Reivweed impact of increased BMI. Interested in nonoperative interventions including glp-1 agonist therapy and accupuncutre/hypnosis. Still reluctant to consider operative interventions for weight loss. No new skin lesions. Past Medical History: Diagnosis Date CHF (congestive heart failure) (HCC) ED (erectile dysfunction) GERD (gastroesophageal reflux disease) 2014 HX OTHER MEDICAL cubital tunnel repair HX OTHER MEDICAL back pain Hyperlipidemia Hypertension Motion sickness Obesity LILI (obstructive sleep apnea) PONV (postoperative nausea and vomiting) Past Surgical History: Procedure Laterality Date FINGER SURGERY 08/2016 2 addition surgery since aug, ULNAR TUNNEL RELEASE Left HOME MEDICATIONS: aspirin 81 mg chewable tablet atorvastatin (LIPITOR) 80 mg tablet carvediloL (COREG) 3.125 mg tablet cyanocobalamin, vitamin B-12, (VITAMIN B-12 ORAL) empagliflozin (Jardiance) 10 mg tablet Entresto 24-26 mg tablet ibuprofen (ADVIL,MOTRIN) 800 mg tablet levocetirizine (XYZAL) 5 mg tablet omeprazole OTC (PriLOSEC OTC) 20 mg EC tablet spironolactone (ALDACTONE) 25 mg tablet tamsulosin (FLOMAX) 0.4 mg extended release capsule turmeric root extract 500 mg capsule tirzepatide, weight loss, (Zepbound) 2.5 mg/0.5 mL pen injector No Known Allergies Social History Tobacco Use Smoking status: Never Smokeless tobacco: Never Substance and Sexual Activity Drug use: Never Types: Alcohol Comment: Occasionally Sexual activity: Not Currently Partners: Female Alcohol Use: Unknown (04/15/2023) AUDIT-C Frequency of Alcohol Consumption: Not on file Average Number of Drinks: Patient does not drink Frequency of Binge Drinking: Not on file Family History Problem Relation Age of Onset Other Mother Alive and well; Hypertension Mother Hypertension; Other Father Alive and well; Coronary artery disease Father Coronary artery disease; Diabetes type II Brother Diabetes -Type II; Review of Systems: Review of Systems Constitutional: Positive for fatigue. Negative for activity change and fever. HENT: Negative for postnasal drip and rhinorrhea. Respiratory: Negative for chest tightness, shortness of breath and wheezing. Cardiovascular: Negative for chest pain and leg swelling. Gastrointestinal: Negative for abdominal pain, blood in stool, constipation, diarrhea, nausea and vomiting. Genitourinary: Negative for dysuria, hematuria and urgency. Musculoskeletal: Positive for arthralgias and gait problem. Negative for back pain, myalgias and neck pain. Skin: Negative for rash. Neurological: Negative for dizziness, tremors, weakness, light-headedness and headaches. Hematological: Negative for adenopathy. Psychiatric/Behavioral: Positive for sleep disturbance. Negative for suicidal ideas. BP 124/78 (BP Location: Left arm, Patient Position: Sitting) Pulse 75 Temp 36.7 ??C (98 ??F) (Oral) Resp 18 Ht 182.9 cm (6' 0.01) Wt (!) 153.8 kg (339 lb) SpO2 98% Comment: room air BMI 45.97 kg/m?? Physical Exam: Physical Exam Vitals reviewed. Constitutional: General: He is not in acute distress. Appearance: He is obese. HENT: Mouth/Throat: Pharynx: No oropharyngeal exudate. Eyes: General: No scleral icterus. Neck: Vascular: No JVD. Cardiovascular: Rate and Rhythm: Normal rate and regular rhythm. Heart sounds: No murmur heard. Pulmonary: Effort: Pulmonary effort is normal. No respiratory distress. Breath sounds: Normal breath sounds. Abdominal: General: Bowel sounds are normal. Palpations: Abdomen is soft. Tenderness: There is no right CVA tenderness or left CVA tenderness. Musculoskeletal: Cervical back: Neck supple. Right lower leg: No edema. Left lower leg: No edema. Lymphadenopathy: Cervical: No cervical adenopathy. Skin: Findings: No erythema or rash. Neurological: Mental Status: He is alert and oriented to person, place, and time. Psychiatric: Thought Content: Thought content normal. Assessment & Plan: Diagnoses and all orders for this visit: Colon cancer screening (Primary) Comments: Will update cologuard and will monitor response. Orders: - Stool DNA - Cologuard; Future LILI (obstructive sleep apnea) Comments: Continues on positive pressure therapy and will follow response. Presence of biventricular automatic cardioverter/defibrillator (AICD) Comments: Continues f/u [facility] and will monitor response. NO s/s of fluid overload. No orthopnea, noPND. Morbid obesity with BMI of 45.0-49.9, adult (HCC) Comments: See discussion as above. WIll give trial fo glp-1 agonsit therpay. BMI 45.0-49.9, adult (HCC) Essential hypertension Comments: Stable on carvedilol adn entresto. and spironolactone. Heart failure with reduced ejection fraction Comments: as above. Primary osteoarthritis involving multiple joints Comments: Reivweed tylenol dosing adn minimizing use of nsaids and will follow resopnse. Other orders - tirzepatide, weight loss, (Zepbound) 2.5 mg/0.5 mL pen injector; Inject 0.5 mL (2.5 mg total) under the skin once a week BMI Follow-up includes: nutrition counseling and exercise counseling. Body mass index is 45.97 kg/m??. Michael Rizo MD [employer] EMPLOYMENT REPRESENTATIVE documented in this encounter Plan of Treatment Scheduled Orders Name Type Priority Associated Diagnoses Orde r Schedule Stool DNA - Cologuard Lab Routine Colon cancer screening Expected: 06/26/2025, Expires: 06/26/2026 documented as of this encounter Visit Diagnoses Diagnosis Colon cancer screening- Primary Special screening for malignant neoplasms, colon LILI (obstructive sleep apnea) Obstructive sleep apnea (adult) (pediatric) Presence of biventricular automatic cardioverter/defibrillator (AICD) Morbid obesity with BMI of 45.0-49.9, adult (HCC) BMI 45.0-49.9, adult (HCC) Essential hypertension Unspecified essential hypertension Heart failure with reduced ejection fraction Primary osteoarthritis involving multiple joints documented in this encounter Care Teams Shampoo Technician Relationship Specialty Start Date End Date Michael Rizo MD [address] [place] [address] PCP - General 09/15/16 documented as of this encounter
--- NOTE | ~2025-06-27 | XR_ITS ---
EXAMINATION: XR knee LT 3V, 06/27/2025 15:36 ANCILLARY SERVICES MANAGER THERAPY HISTORY: NKI, swelling, medial/anterior LT knee, unable to straighten COMPARISON: No comparisons available. Findings: No acute fracture or malalignment. Severe degenerative changes of the patellofemoral joint, small effusion noted Soft tissues unremarkable. Impression: No acute fracture or malalignment. Reviewed, dictated and finalized at location P. LLARY SERVICES MANAGER THERAPY Impression: No acute fracture or malalignment.
[2025-06-27 15:17] VITALS: BP 127/89; PULSE 84; RESP 16; TEMP 37.2; O2SAT 97
[2025-06-27] MEDS: traMADol HCL (*CRX) 50 MG TABLET PO (16:37)
[2025-06-27 16:38] VITALS: BP 123/78; PULSE 88; RESP 16; TEMP 36.7; O2SAT 97
[2025-06-27 16:45] VITALS: BP 146/76; PULSE 69; RESP 18; O2SAT 97
--- OUTSIDE RECORDS SUMMARY | 2025-06-27 18:49 | XMS_ITS | Encounter Summary ---
Author Organization [facility] Address [address] [place] [address] Care Team Providers Care Physical Therapy Manager Name Role Phone Michael Rizo MD Primary Care Provider [phone] Reason for Visit * Reason Onset Date Comments Knee Pain 06/27/2025 Encounter Details Date Type Department Care Team (Late st Contact Info) Description 06/27/2025 Nurse Triage [facility] [address] [facility] [place] [address] Michael Rizo MD [address] [place] [address] Social History Tobacco Use Types Packs/Day Years Used Date Smoking Tobacco: Never Smokeless Tobacco: Never Alcohol Use Standard Drinks/Week Comments Yes 0 [...] on file 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 Today he was in the store and went to take a step on it and his knee had extreme pain. Aches to sit and extreme pain with weight bearing. Does not recall hearing any pop or snap. Pain feels like leg is broke at the knee. It is very painful with any movement. It is swollen on the knee. It has been aching for a couple weeks but something happened to day to worsen it. Pain is rated 8- 9/10 with standing and he can barley balance self to lean against the wall. Pain even is if sitting. Provider contacted via secure chat for ED disposition consult. Recommendation from provider:Proceedto ED Pt agreeable to go to ED now. Disposition Go to ED/UCC Now (or to Office With PCP Approval) Reason for Disposition Can't stand (bear weight) or walk Protocols Used Knee Fmxhop-Pglni-SC ER LAYER * Telephone Encounter - Demetria Yip RN - 06/27/2025 1:41 PM CST Regarding: severe left knee pain and swelling ----- Message from Katerin E sent at 06/27/2025 1:19 PM VENEER LAYER ----- Symptom Based Call Chief Complaint(s): severe left knee pain and swelling Duration: few weeks What type of symptom(s) is the patient experiencing? Red Flag. Is the patient concerned they are experiencing a medical emergency requiring an ambulance? No Additional Comments: patient has been having knee pain for a while but today when out at store doesn't know what he did but now he can't put in weight on his left leg and knee is swollen up and very painful Does message need to be routed? Yes-Action Needed ER LAYER documented in this encounter Plan of Treatment Not on file documented as of this encounter Visit Diagnoses Not on filedocumented in this encounter Care Teams Physical Therapy Manager Relationship Specialty Start Date End Date [place] [address] PCP - General 09/15/16 documented as of this encounter
--- OUTSIDE RECORDS SUMMARY | 2025-06-27 18:50 | XMS_ITS | Encounter Summary ---
Author Organization [facility] Address 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
--- OUTSIDE RECORDS SUMMARY | 2025-06-27 18:50 | XMS_ITS | Clinical Summary ---
Author Organization [facility] Address [address] [place] [address] Care Team Providers Care Science Intern Name Role Phone Michael Rizo MD Primary Care Provider [phone] Allergies No known active allergies Medications omeprazole OTC (PriLOSEC OTC) 20 mg EC tablet take one tab daily 0 08/16/19 13 Active turmeric root extract 500 mg capsuleIndications :Primary osteoarthritis involving multiple joints Take 1 tablet by mouth daily. 90 capsule 1 06/09/20 18 Active cyanocobalamin, vitamin B-12, (VITAMIN B-12 ORAL) Take by mouth Active levocetirizine (XYZAL) 5 mg tablet Take 1 tablet (5 mg total) by mouth every evening OTC Active ibuprofen (ADVIL,MOTRIN) 800 mg tablet Take 1 tablet (800 mg total) by mouth 3 (three) times a day as needed for pain 11/11/19 23 Active aspirin 81 mg chewable tablet Take 1 tablet (81 mg total) by mouth daily 90 tablet 3 11/29/19 23 Active atorvastatin (LIPITOR) 80 mg tablet Take 1 tablet (80 mg total) by mouth daily 90 tablet 3 08/16/19 25 Active spironolactone (ALDACTONE) 25 mg tablet Take 1 tablet by mouth once daily 90 tablet 1 01/28/20 25 Active tamsulosin (FLOMAX) 0.4 mg extended release capsule Take 1 capsule (0.4 mg total) by mouth daily 90 capsule 4 03/08/20 25 Active carvediloL (COREG) 3.125 mg tablet Take 1 tablet (3.125 mg total) by mouth 2 (two) times a day with meals 03/21/20 25 026 Active empagliflozin (Jardiance) 10 mg tablet Take 1 tablet by mouth once daily 90 tablet 3 06/16/20 25 Active Entresto 24-26 mg tablet Take 1 tablet by mouth twice daily 60 tablet 3 06/16/20 25 Active tirzepatide, weight loss, (Zepbound) 2.5 mg/0.5 mL pen injectorIndication s:obstructive sleep apnea syndrome Inject 0.5 mL (2.5 mg total) under the skin once a week 2 mL 1 06/26/20 25 Active traMADoL (ULTRAM) 50 mg tabletIndications: Acute pain of left knee Take 1 tablet (50 mg total) by mouth every 6 (six) hours as needed for pain for up to 5 days 20 tablet 06/27/20 25 025 Active empagliflozin (Jardiance) 10 mg tablet Take 1 tablet by mouth once daily 90 tablet 2 10/15/19 25 025 Discontinued sacubitriL-valsart an (ENTRESTO) 24-26 mg tabletIndications: chronic heart failure Take 1 tablet by mouth 2 (two) times a day 60 tablet 3 02/29/20 25 025 Discontinued Active Problems Problem Noted Date Diagnosed Date Colon cancer screening 06/26/2025 Morbid obesity with BMI of 45.0-49.9, adult 02/2025 BMI 45.0-49.9, adult 06/26/2025 Screening for prostate cancer 03/08/2025 Assessment & Plan (03/08/2025 10:06 AM CDT): PSA ordered. Slow urinary stream. Will check UA. Will also trial tamsulosin and monitor response. Red flags reviewed as well. He is in agreement with plan and states understanding. Medicare annual wellness visit, subsequent 08/04 Assessment & Plan (03/08/2025 9:43 AM CDT): Visit preventive in nature. We reviewed medications, chronic conditions, risk factors, lifestyle recommendations. Reviewed immunization recommendations. Follow-up in 6 months for chronic conditions and 1 year for annual wellness. Assessment & Plan (08/04/2024 11:35 AM DRAFTER (CAD) ELECTRICAL): In regard to health maintenance, Colonoscopy- declined PSA DM-annual visual examination and podiatry visits every 3 months advised. Influenza vaccine- Declined Pneumococcal vaccine- Declined Shingrix vaccine- Declined ASCVD risk: 9.2% Eat a healthy diet: focus on lean meats and proteins, more fruits, vegetables and whole grains and low in sugars and fats. Limit red meat and avoid processed meat. Maintain a healthy weight; avoid being overweight. Aim for a normal body mass index (BMI) of 18.5-24.9. Help learning to eat healthier, we can set up appointment with perfect binder feeder offbearer/developmental mathematics instructor. Have an active lifestyle, strive for 30 minutes of moderate exercise 5 times a week and strength or resistance training at least twice a week. Use broad-spectrum (UVA+UVB) sunscreen with SPF 30 or greater, is water resistant, limit time spent in the sun (10 am-4pm), wear hat, wear UV protective clothing, wear sunglasses. Never use a tanning bed. Skin that was irradiated may be more sensitive over your lifetime. Do not smoke or chew tobacco; participate in a smoking cessation program. Limit alcohol intake, 1 drink per day for a woman and 2 drinks per day for a man Skin lesion of right arm 08/04/2024 Assessment & Plan (08/04/2024 11:36 AM DRAFTER (CAD) ELECTRICAL): Skin tag removed see procedure note. Area covered with band-aid. Abscess of right thumb 08/04/2024 Assessment & Plan (08/04/2024 11:36 AM DRAFTER (CAD) ELECTRICAL): I and D done in office. Will refer to derm if comes back or wants additional evaluation. Will continue to monitor. Annual physical exam 03/03/2024 Assessment & Plan (03/03/2024 8:23 AM CDT): In regard to health maintenance, Colonoscopy agreeable to schedule after the 1st of the year. Referral placed. PSA utd Shingrix vaccine declines vaccines Eat a healthy diet: focus on lean meats and proteins, more fruits, vegetables and whole grains and low in sugars and fats. Limit red meat and avoid processed meat. Maintain a healthy weight; avoid being overweight. Aim for a normal body mass index (BMI) of 18.5-24.9. Help learning to eat healthier, we can set up appointment with perfect binder feeder offbearer/developmental mathematics instructor. Have an active lifestyle, strive for 30 minutes of moderate exercise 5 times a week and strength or resistance training at least twice a week. Use broad-spectrum (UVA+UVB) sunscreen with SPF 30 or greater, is water resistant, limit time spent in the sun (10 am-4pm), wear hat, wear UV protective clothing, wear sunglasses. Never use a tanning bed. Skin that was irradiated may be more sensitive over your lifetime. Do not smoke or chew tobacco; participate in a smoking cessation program. Limit alcohol intake, 1 drink per day for a woman and 2 drinks per day for a man. Prediabetes 11/20/2023 Assessment & Plan (03/08/2025 10:06 AM CDT): Reviewed lifestyle recommendations. Handouts provided as well. Will check A1c and plan accordingly. Assessment & Plan (08/04/2024 11:32 AM DRAFTER (CAD) ELECTRICAL): A1C ordered. Will continue to monitor. Lab Results Component Value Date HGBA1C 6.3 (H) 10/22/2023 HGBA1C 6.1 (H) 09/01/2023 HGBA1C 5.4 06/14/2018 Assessment & Plan (03/03/2024 8:23 AM CDT): Stable. Keep up the great work with the weight loss. Will continue to monitor. 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 Dx; CM, LBBB, Systolic CHF. DOI 04/15/2023-Jeramie. Russell. [place] remote. Assessment & Plan (05/08/2025 9:51 AM CDT): Patient has device in place in setting of LBBB and NICMP. His EF has improved. His last few device checks show normal function without arrhythmia. Heart failure with reduced ejection fraction Assessment & Plan (05/09/2025 1:26 PM CDT): Clinically compensated. BP soft- expected with Entresto. Continue with heart healthy diet. Continue following with cardiology as directed. Red flags reviewed. 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 He has been compliant with GDMT and overall feeling well. No chest pain or shortness of breath. He had follow up echo 01/2025 that showed improvement in EF to 45-50%. Will continue with coreg 3.125 mg BID, aldactone 25 mg daily, entresto 24-26mg daily and Jardiance 10 mg daily. Assessment & Plan (08/04/2024 11:32 AM DRAFTER (CAD) ELECTRICAL): Continues to follow with Cardiology. Will continue on Jardiance, ASA, Spironolactone, Atorvastatin, Entresto, and monitoring. Left bundle branch block 11/13/2022 Screening for colon cancer 12/07/2020 Assessment & Plan (12/07/2020 8:20 AM CDT): Refuses colonoscopy; aware that it is gold standard for CRC screening. Agreeable to cologuard. Aware that cologuard kit will be mailed with directions. To call if no results rec'd 1-2 weeks after kit mailed back for completion of test. Environmental and seasonal allergies 12/20/2019 Assessment & Plan (12/20/2019 9:24 AM CDT): Use Claritin-D as prescribed. LILI (obstructive sleep apnea) 06/09/2018 Assessment & Plan (05/08/2025 9:51 AM CDT): Using CPAP for all sleep Assessment & Plan (03/08/2025 9:24 AM CDT): 100% compliant with CPAP with symptomatic relief. Assessment & Plan (12/20/2024 8:16 AM CDT): Stable and well controlled. Continues to use CPAP nightly with great relief. Assessment & Plan (08/04/2024 11:30 AM DRAFTER (CAD) ELECTRICAL): Reports 100% compliance with CPAP. He is needing a replacement machine due to his not working any more. Will continue to monitor. Assessment & Plan (03/27/2022 7:58 AM CDT): Reports 100% compliance w/CPAP. Wears CPAP even when he naps. Assessment & Plan (09/20/2021 9:17 AM DRAFTER (CAD) ELECTRICAL): Reports 100% compliance w/CPAP. Wears CPAP even when he naps. Assessment & Plan (03/15/2021 9:03 AM CDT): Reports 100% compliance w/CPAP. Assessment & Plan (12/07/2020 8:01 AM CDT): Reports 100% compliance w/CPAP. Wears if napping. Assessment & Plan (06/09/2018 12:49 PM DRAFTER (CAD) ELECTRICAL): Saw Dr. Quiros in March 2012 Sleep Study Results: IMPRESSION: The above polysomnogram documents evidence of: 1. Normal sleep efficiency at baseline. 2. Mild to heavy snoring was noted during baseline. 3. Severe obstructive sleep apnea syndrome. This seems to be extremely severe in the supine position. 4. Positive pressure therapy was found to be effective. Bilevel therapy with inspiratory positive airway pressures of 18 cm and expiratory positive airway pressures of 14 cm was found to be the best attempted pressure. 5. A large, full face, Quatro mask was used. Pt. Needs new machine and mask Pt. Reports compliant 100% of the time and it has worked very well for him. Will order new machine and mask for patient's LILI Essential hypertension 06/09/2018 Assessment & Plan (05/08/2025 9:51 AM CDT): Was seen in January and noted to be hypotensive and light headed. His Entresto dose was decreased to 24-26 mg BID and since then symptoms have resolved and blood pressure well controlled Assessment & Plan (08/04/2024 11:31 AM DRAFTER (CAD) ELECTRICAL): Blood pressure stable and well controlled. Will continue to monitor. Will continue on Entresto, Coreg, and Spironolactone. Assessment & Plan (03/03/2024 8:24 AM CDT): Well controlled on carvedilol, spironolactone. Keep up the great work with weight loss! Will continue to monitor. Assessment & Plan (03/27/2022 10:05 AM CDT): Losartan 50mg daily and HCTZ 25mg daily. The blood pressure is under good control. Ideally it should be under 130/80. Continue medications without adjustment. Continue efforts to eat well (4-5 fruits and veggies) daily and exercise for about 30 min nearly every day. Watch salt intake, keeping to less than 2000mg per day. Limit alcohol. Include strategies to cope with stress. Labs ordered today; will contact w/results once received. Verified that he uses [facility]. Aware to check results/results letter in [facility]. Will contact by phone if needed. Assessment & Plan (09/20/2021 9:17 AM DRAFTER (CAD) ELECTRICAL): Losartan 50mg daily and HCTZ 25mg daily. The blood pressure is under good control. Ideally it should be under 130/80. Continue medications without adjustment. Continue efforts to eat well (4-5 fruits and veggies) daily and exercise for about 30 min nearly every day. Watch salt intake, keeping to less than 2000mg per day. Limit alcohol. Include strategies to cope with stress. Labs ordered today; will contact w/results once received. Assessment & Plan (03/15/2021 8:57 AM CDT): Losartan 50mg daily. Still working on weight. Would like to get off of antihypertensives. Discussed waiting until further wt loss. The blood pressure is under good control. Ideally it should be under 130/80. Continue medications without adjustment. Continue efforts to eat well (4-5 fruits and veggies) daily and exercise for about 30 min nearly every day. Watch salt intake, keeping to less than 2000mg per day. Limit alcohol. Include strategies to cope with stress. Assessment & Plan (12/07/2020 8:50 AM CDT): Losartan 50mg now instead of the 100mg tabs. The blood pressure is under good control. Ideally it should be under 130/80. Continue medications without adjustment. Continue efforts to eat well (4-5 fruits and veggies) daily and exercise for about 30 min nearly every day. Watch salt intake, keeping to less than 2000mg per day. Limit alcohol. Include strategies to cope with stress. Assessment & Plan (07/27/2020 5:12 PM DRAFTER (CAD) ELECTRICAL): The blood pressure is under good control. Ideally it should be under 130/80. Continue medications without adjustment. Continue efforts to eat well (4-5 fruits and veggies) daily and exercise for about 30 min nearly every day. Watch salt intake, keeping to less than 2000mg per day. Limit alcohol. Include strategies to cope with stress. Labs ordered today; will contact w/results once received. Assessment & Plan (06/09/2018 12:37 PM DRAFTER (CAD) ELECTRICAL): Hypertension is unchanged. Continue current treatment regimen. Continue Losartan-Hydrochlorothiazide 100-25 mg daily Continue Baby ASA 81 mg daily Avoid medications like Motrin, Aleve, Ibuprofen, Naprosyn Most likely needs to be on Lipid lowering medications Pt. With fatigue and some erectile dysfunction-If other labs ok-would benefit from EKG and ECHO since it has been quite a while since he has had any testing Blood pressure will be reassessed in 3 months. Last Cardiac Cath 04/01/2005-IMPRESSION: No obstructive coronary artery disease, normal LV function, and normal LV hemodynamics Last EKG 03/11/18-Possible ectopic atrial rhythm Nondiagnostic STT abnormalities Last Stress Echo 12/17/1999-CONCLUSIONS: 1. ADEQUATE STRESS TESTING WITH REGARDS TO HEART RATE. 2. GOOD EXERCISE TOLERANCE FOR AGE AND GENERAL MEDICAL CONDITION. 3. OVERALL TEST RESPONSE IS NORMAL BY SYMPTOMS AND ALSO NORMAL BY EKG'S. Lifestyle changes can help you control and prevent high blood pressure, even if you're taking blood pressure medication. Here's what you can do: Eat healthy foods. Eat a healthy diet. Try the Dietary Approaches to Stop Hypertension (DASH) diet, which emphasizes fruits, vegetables, whole grains, poultry, fish and low-fat dairy foods. Get plenty of potassium, which can help prevent and control high blood pressure. Eat less saturated fat and trans fat. Decrease the salt in your diet. A lower sodium level -- 1,500 milligrams (mg) a day -- is appropriate for people 51 years of age or older, and individuals of any age who are black or who have hypertension, diabetes or chronic kidney disease. Maintain a healthy weight. Keeping a healthy weight, or losing weight if you're overweight or obese, can help you control your high blood pressure and lower your risk of related health problems. If you're overweight, losing even 5 pounds (2.3 kilograms) can lower your blood pressure. Increase physical activity. Regular physical activity can help lower your blood pressure, manage stress, reduce your risk of several health problems and keep your weight under control. Limit alcohol. Even if you're healthy, alcohol can raise your blood pressure. If you choose to drink alcohol, do so in moderation. For healthy adults, that means up to one drink a day for women of all ages and men older than age 65, and up to two drinks a day for men age 65 and younger. One drink equals 12 ounces of beer, 5 ounces of wine or 1.5 ounces of 80-proof liquor. Don't smoke. Tobacco injures blood vessel benedict and speeds up the process of hardening of the arteries. If you smoke, ask your doctor to help you quit. Manage stress. Reduce stress as much as possible. Practice healthy coping techniques, such as muscle relaxation, deep breathing or meditation. Getting regular physical activity and plenty of sleep can help, too. Notify the office for blood pressure greater than 130/80 Primary osteoarthritis involving multiple joints 06/09/2018 Assessment & Plan (06/09/2018 12:28 PM DRAFTER (CAD) ELECTRICAL): Osteoarthritis (OA): Goals of OA management are to minimize pain, optimize function, and beneficially modify the process of joint damage. Management: Including weight management and exercises, braces and foot orthoses for patients suitable to these interventions, and use of assistive devices when required. Recommend Wt. Loss, Range of Motion, Exercise, Heat or Ice Local analgesics (e.g., capsaicin, methylsalicylate cream, or topical NSAIDs) should be used as first-line therapy. * Capsaicin topical : (0.025 to 0.075%) apply to the affected area(s) three to four times daily as needed * Methylsalicylate topical: apply to the affected area(s) three to four times daily when required *Diclofenac topical TRY THESE Offered PT-will not work with patient's work schedule, referral to [facility] at this time. Pt. Has had injections in the past with his back pain. -Glucosamine and chondroitin sulfate (GCS) are dietary supplements commonly used by people with OA -Duloxetine (Cymbalta) for patients with OA in multiple joints and concomitant comorbidities. This has been approved for Chronic pain, Fibromyalgia, Neuropathy, Chronic musculoskeletal pain. We can try this if the Turmeric does not help. It is a lot safer than taking NSAID's (non-steroidal antiinflammatory drugs like Motrin, Ibuprofen, Aleve) Alternative treatment of OA include acupuncture, traditional [place] medicine, and transcutaneous nerve stimulation (TENS). Start Turmeric 500 mg by mouth daily If no improvement can try Cymbalto and Mobic (same for kidneys) Other male erectile dysfunction 06/09/2018 Assessment & Plan (06/09/2018 12:12 PM DRAFTER (CAD) ELECTRICAL): Reports some erectile dysfunction, fatigue Will check Testosterone level Talked to patient regarding possible relationship between erectile dysfunction and heart disease. We will also check Lipid panel, etc. And for diabetes Erectile Dysfunction Management: Reduce stress. Try alternative sexual techniques for closeness, fondling, foreplay and mutual masturbation. Get regular exercise. Stop smoking and reduce Alcohol intake. Maintain a normal blood pressure and try to lose weight. If you have diabetes, you need to manage your blood sugar to have your A1C as close to your goal of less than 7. If you have high cholesterol, you need to reduce it to the normal range by eating a heart healthy diet. May try a Vitamin E daily supplement. [place] Red Ginseng 900 mg three times a day supplement may help. Some medications may help if not contraindicated, like Viagra (Sildenafil), Levitra (Vardenafil), Cialis (Tadalafil). Mixed hyperlipidemia 06/09/2018 Assessment & Plan (05/08/2025 9:51 AM CDT): Continues on atorvastatin 80 mg daily Assessment & Plan (08/04/2024 11:31 AM DRAFTER (CAD) ELECTRICAL): Lipid panel stable. Will continue on Atorvastatin and continue to monitor. Assessment & Plan (03/27/2022 10:06 AM CDT): 08/15/19 HN=478 HDL=50 WD=418 GGC=436 TC/HDL=4.6 12/07/20 SB=313 HDL=40 OY=925 GXX=487 TC/HDL=5.1 03/15/21 DY=215 HDL=39 TG=63 PPW=417 TC/HDL=5.0 10/22/21 IV=927 HDL=56 TG=86 MHN=767 TC/HDL=3.8 QKABBE=[id number] QYO=442 Still refusing statin therapy. Would like to get down to 270# but weight back up to 317#. Stressed that LDL too high, plaque build up can cause cardiac event. Reviewed foods to avoid to lower LDL & TC. Reviewed need to increase activity, fiber & low fat foods. Lipid panel ordered; will call w/results when received. Reviewed diet/exercise recommendations. Verified that he uses [facility]. Aware to check results/results letter in [facility]. Will contact by phone if needed. Assessment & Plan (09/20/2021 9:16 AM DRAFTER (CAD) ELECTRICAL): 08/15/19 UX=866 HDL=50 EC=190 KZC=661 TC/HDL=4.6 12/07/20 DD=074 HDL=40 IH=896 HPW=326 TC/HDL=5.1 03/15/21 HK=548 HDL=39 TG=63 OSP=219 TC/HDL=5.0 NON XFE=445 Refuses statin therapy. Would like to get down to 275#. Stressed that LDL too high, plaque build up can cause cardiac event. Reviewed foods to avoid to lower LDL & TC. Reviewed need to increase activity, fiber & low fat foods. Assessment & Plan (03/15/2021 9:03 AM CDT): 08/15/19 ZD=890 HDL=50 CX=670 AZB=075 TC/HDL=4.6 12/07/20 KK=415 HDL=40 IF=803 HGP=019 TC/HDL=5.1 03/15/21 UO=472 HDL=39 TG=63 BWE=728 TC/HDL=5.0 NON WXS=042 Refuses statin therapy. Has lost 50#. Would like to get down to 275#. Stressed that LDL too high, plaque build up can cause cardiac event. Reviewed foods to avoid to lower LDL & TC. Reviewed need to increase activity, fiber & low fat foods. Assessment & Plan (12/07/2020 8:51 AM CDT): Should be on Simvastatin 40mg At 08/15/19 appt stated that he'd stopped taking simvastatin. 06/14/18 CY=850 HDL=49 TG=86 LML=487 TC/HDL=4.5 08/15/19 DV=086 HDL=50 ZR=541 KFU=437 TC/HDL=4.6 12/07/20 RV=308 HDL=40 YB=881 LLI=155 TC/HDL=5.1 Copy of results given to David Bolaños. Reviewed results at time of appointment. Will resume simvastatin at this time. Discussed as his diet improves & he loses weight-- we may be able to cut back on the simvastatin. Will rtc in 6 mos for repeat lipid panel. Assessment & Plan (07/27/2020 5:12 PM DRAFTER (CAD) ELECTRICAL): 06/14/18 A1C=5.4% TL=014 HDL=49 TG=86 LSV=937 TC/HDL=4.5 08/15/19 NG=768 HDL=50 LJ=676 NZF=622 TC/HDL=4.6 Reviewed above results Mr Bolaños. Reports that he's stopped his statin therapy. Stressed need. Discussed LDL causing plaque build-up, risk of blockages. Will have lipid repeated & resume simvastatin. Denies need for refills. States that he only took 2 last year. Assessment & Plan (06/09/2018 12:24 PM DRAFTER (CAD) ELECTRICAL): Lipid abnormalities are unchanged. Nutritional counseling was provided. Lipids will be reassessed in 6 months. Need to get Lipid's checked this week. Orders were given at last visit but not done. Pt. Does have hx of high LDL of 175 in March 2017 If still elevated would recommend starting a Statin medication because of pt's risk factors of HTN, Obesity Continue with trying to loss weight Try [place] 3 Fish Oil Explained to him the risk of heart attack and Stroke related to high LDL Refused influenza vaccine 06/09/2018 Assessment & Plan (09/20/2021 9:16 AM DRAFTER (CAD) ELECTRICAL): Discussed and the patient refuses immunization today. Educated regarding the need to vaccinate for personal protection and to limit the viruses in the community to protect those most vulnerable. Assessment & Plan (07/27/2020 5:05 PM DRAFTER (CAD) ELECTRICAL): Discussed and the patient refuses immunization today. Educated regarding the need to vaccinate for personal protection and to limit the viruses in the community to protect those most vulnerable. Resolved Problems Problem Noted Date Diagnosed Date Resolved Date Systolic congestive heart failure 04/15/2023 11/20/2023 Atypical chest pain 11/13/2022 11/13/2022 11/20/19 24 Cardiomyopathy 11/13/2022 11/13/2022 11/20/2023 Class 2 severe obesity due t o excess calories with serious comorbidity and body mass index (BMI) of 38.0 to 38.9 in adult 03/15/2021 Assessment & Plan (09/20/2021 9:16 AM DRAFTER (CAD) ELECTRICAL): Had been down to 284# prior to holidays but did not watch intake. Today 294#. Has been off of topiramate and would like to resume. Feels that it was helpful for diet. Stressed need to improve diet to help lower LDL. To increase fiber as well as activity. Reviewed need to lose weight, reviewed health benefits. Reviewed recommendations for daily intake & activity 20-30 minutes/day. Discussed healthy diet and importance of regular physical activity. Assessment & Plan (03/15/2021 8:27 AM CDT): Reviewed need to lose weight, reviewed health benefits. Reviewed recommendations for daily intake & activity 20-30 minutes/day. Discussed healthy diet and importance of regular physical activity. Has dropped from 315# to now 295#. Congratulated on wt loss. Statin declined 03/15/2021 11/20/2023 Assessment & Plan (03/27/2022 7:59 AM CDT): Reviewed risks of elevated LDL & plaque formation. Assessment & Plan (09/20/2021 9:15 AM DRAFTER (CAD) ELECTRICAL): Stressed need to improve diet to help lower LDL. To increase fiber as well as activity. Class 3 severe obesity due t o excess calories with serious comorbidity and body mass index (BMI) of 40.0 to 44.9 in adult 12/07/2020 Assessment & Plan (05/08/2025 1:28 PM CDT): Weight is up 9lbs since last visit. Does not appear to be secondary to volume overload. Most likely d/t excess calorie intake and limited activity. Have encouraged lifestyle modification. Suggested GLP-1 in setting of obesity and LILI, but his insurance does not cover. Assessment & Plan (03/08/2025 9:44 AM CDT): Reviewed lifestyle recommendations. Handouts provided. Assessment & Plan (12/20/2024 8:16 AM CDT): Encouraged heart healthy diet and lifestyle. Advised 150 min/week of aerobic exercise. Assessment & Plan (08/04/2024 11:31 AM DRAFTER (CAD) ELECTRICAL): Encouraged heart healthy diet and lifestyle. Advised 150 min/week of aerobic exercise. Assessment & Plan (03/27/2022 8:53 AM CDT): Reviewed need to lose weight, reviewed health benefits. Reviewed recommendations for daily intake & activity 20-30 minutes/day. Discussed healthy diet and importance of regular physical activity. Phentermine 37.5mg daily #30 refilled 03/26/22. Assessment & Plan (12/07/2020 8:41 AM CDT): Reviewed need to lose weight, reviewed health benefits. Reviewed recommendations for daily intake & activity 20-30 minutes/day. Discussed healthy diet and importance of regular physical activity. Congratulated on weight loss thus far. Morbid obesity with BMI of 40.0-44.9, adult 07/27/2020 07/27/2020 Morbid obesity with BMI of 45.0-49.9, adult 07/27/2020 12/07/2020 Assessment & Plan (07/27/2020 5:39 PM DRAFTER (CAD) ELECTRICAL): Reviewed need to lose weight, reviewed health benefits. Reviewed recommendations for daily intake & activity 20-30 minutes/day. Discussed healthy diet and importance of regular physical activity. Spoke at length re: diet/exercise (lifestyle modifications) as the main staple in weight change. Adamant that he did not want gastric surgery. Has not had any improvement w/phentermine/topamax; has actually gained weight. Discussed that there is no magic pill; lifestyle changes have to be made while taking appetite suppressants. Discussed fast foods vs meal prep type. Having healthy food options readily available. Discussed low carb, lean protein, heavy vegetable diet. Nausea 12/20/2019 12/07/2020 Assessment & Plan (12/20/2019 9:24 AM CDT): Will await response to medication. If nausea persists for more than 24 hours he will need to be evaluated. Dizziness 12/20/2019 07/27/2020 Assessment & Plan (12/20/2019 9:24 AM CDT): Hold blood pressure medications this morning. Check blood pressure tomorrow morning before taking medication. If dizziness persists he will need to come in and be evaluated. Morbid obesity 12/03/2013 08/04/2024 Overview (10/22/2016): MORBID OBESITY Assessment & Plan (06/09/2018 12:20 PM DRAFTER (CAD) ELECTRICAL): Obesity is unchanged. Discussed the patient's BMI. The BMI is above average; BMI management plan is completed. General weight loss/lifestyle modification strategies discussed (elicit support from others; identify saboteurs; non-food rewards, etc). Diet= low-carb Limit white bread, rice, pasta, potatoes, juice, energy drinks, coffee creamers with sugar, sugar sodas, candy, cake, cookies, ice cream. Be more careful with starchy vegetables like corn, carrots, and fruits. Stay away from processed foods, fast foods, fried foods. The cornerstone of this diet is lean grilled meats, green salads or cooked greens, fat-free milk, cottage cheese, nuts like [id number]-[id number]-smgpslp, protein bars with 10-15 g of protein and 20-30 g of carbohydrate. Choose whole grain breads and pastas, brown rice, sweet potatoes, read onions--these whole grains absorb more slowly thus blood sugar does not surge so high so quickly. Avoid drinking juice, eat a piece of fruit instead. Continue with Phentermine Check for Diabetes Check Lipids Encounters Date Type Department Care Team Description 06/27/2025 Nurse Triage [facility] [address] [phone] Michael Rizo MD 06/26/2025 9:30 AM DRAFTER (CAD) ELECTRICAL Office Visit [facility] [address] [phone] Michael Rizo MD Colon cancer screening (Primary Dx); LILI (obstructive sleep apnea); Presence of biventricular automatic cardioverter/defibril lator (AICD); Morbid obesity with BMI of 45.0-49.9, adult (HCC); BMI 45.0-49.9, adult (HCC); Essential hypertension; Heart failure with reduced ejection fraction; Primary osteoarthritis involving multiple joints 06/13/2025 8:00 AM DRAFTER (CAD) ELECTRICAL Ancillary Procedure [facility] [address] [place] [address] [place] [phone] Heart failure with reduced ejection fraction; Left bundle branch block; Presence of biventricular automatic cardioverter/defibril lator (AICD); Cardiomyopathy, unspecified type (HCC) 06/08/2025 Telephone [facility] [address] [phone] Michael Rizo MD 05/09/2025 1:00 PM CDT Office Visit [facility] [address] [place] [address] Janet Becerra NP Pustule (Primary Dx); Presence of biventricular automatic cardioverter/defibril lator (AICD); Heart failure with reduced ejection fraction 05/08/2025 10:00 AM CDT Office Visit [facility] [address] [facility] [address] [place] [phone] Janet Toledo NP Heart failure with reduced ejection fraction (Primary Dx); Presence of biventricular automatic cardioverter/defibril lator (AICD); Essential hypertension; LILI (obstructive sleep apnea); Mixed hyperlipidemia; Class 3 severe obesity due to excess calories with serious comorbidity and body mass index (BMI) of 40.0 to 44.9 in adult 05/08/2025 Telephone [facility] [address] [facility] [address] [place] [phone] Janet Toledo NP 2025 Telephone [facility] [address] [facility] [address] [place] [phone] Cathy Irizarry NP Letter for School/Work 04/05/2025 7:45 AM CDT Telemedicine [facility] [address] [place] [address] Susu Ruiz NP Left flank pain (Primary Dx) 04/05/2025 Patient Self-Triage [facility] [address] [place] [address] Mychart, Generic Provider from Last 3 Months Immunizations Immunization Administration Dates Next Due Influenza, Split 10/07/2013,10/07/2013 Influenza, Unspecified 12/14/2024(Deferr ed: Patient Refused),08/04/2024(Deferred: Patient Refused),03/20/2024(Deferred: Patient Refused),03/20/2024(Deferred: Patient Refused),02/19/2024(Deferred: Patient Refused),09/03/2023(Deferred: Patient Refused),04/06/2023(Deferred: Patient Refused),03/20/2023(Deferred: Patient Refused),03/20/2023(Deferred: Patient Refused),02/23/2023(Deferred: Patient Refused),10/10/2022(Deferred: Patient Refused),04/06/2022(Deferred: Patient Refused),03/27/2022(Deferred: Patient Refused),03/20/2022(Deferred: Patient Refused),03/20/2022(Deferred: Patient Refused),07/20/2021(Deferred: Patient Refused),04/19/2021(Deferred: Patient Refused),03/20/2021(Deferred: Patient Refused),03/15/2021(Deferred: Patient Refused),07/27/2020(Deferred: Patient Refused),07/27/2020(Deferred: Patient Refused),07/27/2020(Deferred: Patient Refused),07/20/2020(Deferred: Patient Refused),04/19/2020(Deferred: Patient Refused),04/19/2020(Deferred: Patient Refused),07/20/2019(Deferred: Patient Refused),07/20/2019(Deferred: Patient Refused),07/20/2019(Deferred: Patient Refused),05/05/2019(Deferred: Patient Refused),04/19/2019(Deferred: Patient Refused),06/09/2018(Deferred: Patient Refused),04/19/2018(Deferred: Patient Refused),04/19/2018(Deferred: Patient Refused),04/19/2018(Deferred: Patient Refused),12/28/2017(Deferred: Patient Refused),07/21/2016(Deferred: Patient Refused) Surgical History Surgery Date Site/Laterality Comments FINGER SURGERY 08/20/2016 - 09/16/2016 2 addition surgery since aug, ULNAR TUNNEL RELEASE Left Medical History Medical History Date Comments Hx Other Medical cubital tunnel repair Hx Other Medical back pain Obesity Hypertension LILI (obstructive sleep apnea) Hyperlipidemia ED (erectile dysfunction) GERD (gastroesophageal reflux disease) 2014 PONV (postoperative nausea and vomiting) Motion sickness CHF (congestive heart failure) ([facility]) Family History Medical History Relation Name Comments Diabetes type II Brother Diabetes -T ype II; Coronary artery disease Father Meek simpson artery disease; Other Father Alive and well; Hypertension Mother Mili bolaños Hypertens ion; Other Mother Mili bolaños Alive and well; Relation Name Status Comments Brother Father (Age 67) Mother Mili bolaños (Age 95) Social History Tobacco Use Types Packs/Day Years [...] on file Legal Sex Male 7:29 PM DRAFTER (CAD) ELECTRICAL Gender Identity Not on file Sexual Orientation Not on file Last Filed Vital Signs Vital Sign Reading Time Taken Comments Blood Pressure 124/78 06/26/2025 9:04 AM DRAFTER (CAD) ELECTRICAL Pulse 75 06/26/2025 9:04 AM DRAFTER (CAD) ELECTRICAL Temperature 36.7 C (98 F) 06/26/2025 9:04 AM DRAFTER (CAD) ELECTRICAL Respiratory Rate 18 06/26/2025 9:04 AM DRAFTER (CAD) ELECTRICAL Oxygen Saturation 98% 06/26/2025 9:04 AM DRAFTER (CAD) ELECTRICAL room air Inhaled Oxygen Concentration - - Weight 153.8 kg (339 lb) 06/26/2025 9:04 AM DRAFTER (CAD) ELECTRICAL Height 182.9 cm (6' 0.01) 06/26/2025 9:04 AM CS T Body Mass Index 45.97 06/26/2025 9:04 AM DRAFTER (CAD) ELECTRICAL Plan of Treatment Health Maintenance Due Date Last Done Comments DTaP/Tdap/Td Vaccine (1 - Tdap) 1970 Hepatitis B Screening 1977 Pneumococcal vaccine 65+ (1 of 2 - PCV) 1978 Zoster Vaccine (1 of 2) 2009 Colon Cancer Screening-DNA Stool 12/19/2023 12/19/19 Influenza Vaccine (#1) 2025 10/07/2013, 2013 Well Visit 65+ 03/08/2026 03/08/2025, 07/20, 03/03/2024 Depression Screening 06/26/2026 06/26/2025, 03/08/2025, 12/14/2024, Additional history exists Fall Risk Assessment 06/26/2026 06/26/2025, 05/08/2025, 03/08/2025, Additional history exists Prostate Cancer Screening-PSA 03/15/2027, 09/01/2023, 04/02/2017, Additional history exists Colon Cancer Screening-FIT Discontinued 12/18/2020 Hepatitis C Screening Completed 04/15/2023 Medical Devices Implanted Type Area Weighing Station Operator Device Identifier Shelf Expiration Date Model / Serial / Lot Med[employer]onic Inc Tyrx Absorbable Antibacterial Envelope-Large 3.3x2.9in [id number] - [id number] Implanted:Qty: 1 on 04/15/2023 by Jose Boob MD at [facility] Collagen Left: Infraclavicular Anterior Chest Wall Medtronic Inc 01/10/2024 [id number] / / [id number] Hooker Vascular Defib Cardiac [id number] [id number] Romulus Hf Df4 Is-4 Is-1 Cnctr [id number] - [id number] - [id number] Implanted:Qty: 1 on 04/15/2023 by Jose Bobo MD at [facility] ICD Left: Infraclavicular Anterior Chest Wall [employer]er [employer] 10/18/2023 [id number] 0Q / [id number] / [employer] Durata 6.8fr 65cm True Bipolar Active Fixation Extendable 1 Coil 7122q/65 - [id number] - [id number] Implanted:Qty: 1 on 04/15/2023 by Jose Bobo MD at [facility] Lead Right: Ventricle [employer] 01/16/2026 7122Q/6 5 / [id number] / [employer] Tendril Sts 6fr 52cm Is-1 Connector Active Fixation Bipolar Soft 2087tc/52 - [id number] - [id number] Implanted:Qty: 1 on 04/15/2023 by Jose Bobo MD at [facility] Lead Right: Atrial Appendage [employer] 03/19/20268TC/ 52 / [id number] / [employer] Quartet 4.7fr 86cm Quadripolar Is-4 Llll Connector 8 Curve Low 1456q/86 - [id number] - [id number] Implanted:Qty: 1 on 04/15/2023 by Jose Bobo MD at [facility] Lead N/A: Coronary Sinus [employer] 01/16/2026 1456Q/8 6 / [id number] / Procedures Procedure Name Priority Date/Time Associated Diagnosis Comments DEVICE CHECK - REMOTE Routine 06/13/2025 8:11 AM DRAFTER (CAD) ELECTRICAL Heart failure with reduced ejection fraction Left bundle branch block Presence of biventricular automatic cardioverter/defibrill ator (AICD) Cardiomyopathy, unspecified type (HCC) PSA SCREEN Routine 03/15/2025 8:19 AM CDT Screening for prostate cancer Medicare annual wellness visit, subsequent HEPATITIS C ANTIBODY Routine 04/15/2023 8:50 AM CDT STOOL DNA COLOGUARD Routine 12/18/2020 7:50 AM CDT Screening for colon cancer from Last 3 Months or Most Recently Relevant to Health Maintenance Results * DEVICE CHECK - REMOTE (06/13/2025 8:11 AM DRAFTER (CAD) ELECTRICAL) Anatomical Region Laterality Modality Other Narrative 06/20/2025 9:14 AM DRAFTER (CAD) ELECTRICAL Hooker Romulus BIV ICD. Dx; CM, LBBB, Systolic CHF. DOI 04/15/2023-Kahanda. [place]. [place] remote. Routine DDD ICD Remote. Transmission attached. Battery status 68%, 4.8 years remaining battery life to YUMIKO. Stable Charge time and Shock impedance. Stable lead impedances, pacing, and sensing threshold. Presenting rhythm: /BP AP-5.3 %, Bi-V P-99 %. (0) AT/AF episodes noted. (0) Ventricular tachy arrhythmias detected. Medication: ASA 81 mg, carvedilol 3.125 mg, Entresto 24-26 mg Follow up: Office Pacemaker/ICD scheduled 03/14/26 [place] remote 09/12/25 Eusebio Gan RN us [facility] Shari Martínez MD CV CARDIAC SERVICES PRO CEDURES Final Result * PSA screen (03/15/2025 8:19 AM CDT) PSA-Total 1.61 <=5.40 ng/mL Comment: Interpretive Data AGE SEX REFERENCE INTERVAL 0 minutes-150 years Female None 0 minutes-49 years Male None 50-59 years Male 0-3.90 60-69 years Male 0-5.40 70-79 years Male 0-6.20 80-150 years Male 0-6.20 The Brisa PSA Total assay procedure was used. Results from different manufacturers or methods may not be comparable. Serial testing should be performed using the same method. Current interpretive data last revised 21. Testing performed by: [facility], [address] [place] [address], [place]., [address] Blood 03/15/2025 8:19 AM CDT 03/15/2025 1:41 PM CDT us Janet Becerra NP LAB BLOOD ORDERABLES Final Result [facility] [place] [address] * Hepatitis C antibody Blood (04/15/2023 8:50 AM CDT) Hep C Ab Nonreactive Nonreactive Comment: Interpretive Data Nonreactive: Antibodies to HCV not detected. Does NOT exclude the possibility of recent exposure to HCV. Equivocal: Equivocal for HCV antibodies. Supplemental molecular testing will be automatically performed to determine infection status in accordance with current CDC screening recommendations. Reactive: Positive for HCV antibodies. This may represent current or past HCV infection. Supplemental molecular testing will be automatically performed to determine current infection status in accordance with current CDC screening recommendations. Interpretive data was last revised on 2019. Blood 04/15/2023 8:50 AM CDT 04/15/2023 9:23 AM CDT us Physician No LAB MICROBIOLOGY - GENERAL ORDER JAMES Edited Result - Final [facility] [address] Department [place] [address] * Stool DNA - Cologuard (12/18/2020 7:50 AM CDT) Stool DNA - Cologuard Negative Negative [facility] (CLIA #:[id number]) Comment: NEGATIVE TEST RESULT. A negative Cologuard result indicates a low likelihood that a colorectal cancer (CRC) or advanced adenoma (adenomatous polyps with more advanced pre-malignant features) is present. The chance that a person with a negative Cologuard test has a colorectal cancer is less than 1 in 1500 (negative predictive value >99.9%) or has an advanced adenoma is less than 5.3% (negative predictive value 94.7%). These data are based on a prospective cross-sectional study of 10,000 individuals at average risk for colorectal cancer who were screened with both Cologuard and colonoscopy. (Sarah Barrientos al, N Engl J Med 2014;370(14):2579-9423) The normal value (reference range) for this assay is negative. COLOGUARD RE-SCREENING RECOMMENDATION: Periodic colorectal cancer screening is an important part of preventive healthcare for asymptomatic individuals at average risk for colorectal cancer. Following a negative Cologuard result, the [place] Cancer Society and U.S. Multi-Society Task Force screening guidelines recommend a Cologuard re-screening interval of 3 years. References: [place] Cancer Society Guideline for Colorectal Cancer Screening: https://www.cancer.org/cancer/xmugz-zkwyqx-eiczwh/xyndtxunj-ojyzueqnx-cyjfkwt/ac s-rec ommendations.html.; Dm BOLAÑOS, Aminah WALKER, Esau LeijaK, Colorectal Cancer Screening: Recommendations for Physicians and Patients from the U.S. Multi-Society Task Force on Colorectal Cancer Screening , Am J Gastroenterology 2017; 112:9966-3974. TEST DESCRIPTION: Composite algorithmic analysis of stool DNA-biomarkers with hemoglobin immunoassay. Quantitative values of individual biomarkers are not reportable and are not associated with individual biomarker result reference ranges. Cologuard is intended for colorectal cancer screening of adults of either sex, 45 years or older, who are at average-risk for colorectal cancer (CRC). Cologuard has been approved for use by the U.S. FDA. The performance of Cologuard was established in a cross sectional study of average-risk adults aged 50-84. Cologuard performance in patients ages 45 to 49 years was estimated by sub-group analysis of near-age groups. Colonoscopies performed for a positive result may find as the most clinically significant lesion: colorectal cancer [4.0%], advanced adenoma (including sessile serrated polyps greater than or equal to 1cm diameter) [20%] or non- advanced adenoma [31%]; or no colorectal neoplasia [45%]. These estimates are derived from a prospective cross-sectional screening study of 10,000 individuals at average risk for colorectal cancer who were screened with both Cologuard and colonoscopy. (Sarah Ortiz et al, N Engl J Med 2014;370(14):8389-5384.) Cologuard may produce a false negative or false positive result (no colorectal cancer or precancerous polyp present at colonoscopy follow up). A negative Cologuard test result does not guarantee the absence of CRC or advanced adenoma (pre-cancer). The current Cologuard screening interval is every 3 years. ([place] Cancer Society and U.S. Multi-Society Task Force). Cologuard performance data in a 10,000 patient pivotal study using colonoscopy as the reference method can be accessed at the following location: www.[employer]/results. Additional description of the Cologuard test process, warnings and precautions can be found at www.cologuard.[employer]. Stool 12/18/2020 7:50 AM CDT 12/19/2020 3:35 PM CDT us Landy Latif GAS OR PETROLEUM OPERATOR LAB BODY FLUIDS AND STOOL S ORDERABLES Final Result [facility] (CLIA #:[id number]) [place] [address] from Last 3 Months or Most Recently Relevant to Health Maintenance Insurance [employer] [facility] MEDICARE ADVANTAGE Advance Directives For more information, please contact: [phone] * Full Code (Latest Code Status on File) Date Activated Date Inactivated Comments 04/15/2023 11:02 AM 04/16/2023 2:50 PM Care Teams Science Intern Relationship Specialty Start Date End Date Michael Rizo MD [address] [place] [address] PCP - General 09/15/16"
--- OUTSIDE RECORDS SUMMARY | 2025-06-27 18:51 | XMS_ITS | Encounter Summary ---
[facility] Address [address] [place] [address] Care Team Providers Care Purchasing Coordinator Name Role Phone Unavailable Primary Care Provider Unavailabl e Encounter Details Date Type Department Care Team (Late st Contact Info) Description 03/09/2003 Outpatient Historical [facility] ([facility]) [address] 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
--- OUTSIDE RECORDS SUMMARY | 2025-06-27 18:51 | XMS_ITS | Encounter Summary ---
Author Organization [facility] Address [address] [place] [address] Care Team Providers Care Journeyman Millwright Name Role Phone Unavailable Primary Care Provider Unavailabl e Encounter Details Date Type Department Care Team (Late st Contact Info) Description 03/09/2003 Outpatient Historical HIS PATIENT IN A BED [facility] [place], Shar Montano MD [address] [facility] [address] [place] [id number] ULNAR NERVE LESION (Primary Dx) Social History Tobacco Use Types Packs/Day Years Used Date Smoking Tobacco: Never Assessed Sex and Gender Information Value Date Recorded Sex Assigned at Not on file 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
--- OUTSIDE RECORDS SUMMARY | 2025-06-27 18:51 | XMS_ITS | Clinical Summary ---
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
--- OUTSIDE RECORDS SUMMARY | 2025-06-27 18:51 | XMS_ITS | Encounter Summary ---
Author Organization [facility] Address 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
--- NOTE | 2025-06-28 08:48 | ED_ITS ---
HPI - Extremity Injury (Lower) General Chief Complaint: Extremity Injury, Lower Stated Complaint: left knee pain Time Seen by Provider: 06/27/25 15:35 History of Present Illness HPI Narrative: 65-year-old white male with a long history of some mild discomfort here and there in his joints, today stepped wrong, developed sudden onset of pain in the medial aspect of his left knee, ENT reports is really quite painful. He did not fall, it really did not buckle, it just moved a little bit and then hurt like hell. No other complaints, no numbness or tingling, no left hip ankle or knee pain Related Data Home Medications ?Medication ?Instructions ?Recorded ?Confirmed ?Last Taken ?Type aspirin 81 mg capsule 81 mg PO DAILY 11/03/2210/1811/05/22 09:00 History levocetirizine 5 mg tablet 5 mg PO DAILY 11/03/2210/1811/05/22 09:00 History omeprazole magnesium 20 mg 20 mg PO DAILY 11/03/2211/05/22 09:00 History tablet,delayed release (Prilosec OTC) vitamin B complex (B 1 tablet PO DAILY 11/03/22 0 11/05/22 11/05/22 09:00 History Complex-Vitamin B12 tablet) Allergies Allergy/AdvReac Type Severity Reaction Status Date / Time No Known Allergies Allergy Verified 06/27/25 15:22 [facility] Past Medical History Medical History Hypertension Obstructive sleep apnea on CPAP Surgical History Surgical History History of cardiac catheterization (2002) Clear coronary arteries. S/P cubital tunnel release Left. Family History Family History Sibling Diabetes mellitus Hodgkins lymphoma Mother Alzheimer's dementia Father Emphysema lung Acute myocardial infarction Social History Social History Social History: Surrogate medical decision maker: Tamika Caceres, significant other. Code status: Full code. Smoking status: Never smoker Alcohol intake: current Drinks per week: 2 Substance use: never Substance use type: does not use Lack of Transportation: No Lack of Food: Never True Current Housing: I Have Housing Concerned About Future Housing: No Difficulty Paying Gas/Electric Bills: No Difficulty Paying for Meds: No Currently Unemployed: No Education: High School Diploma/GED Difficulty w/ Childcare or Family Care: No Additional living arrangements comments: Lives with significant other in [place]. Spiritual care concerns: No Exam Narrative: pleasant, well-oriented, no acute distress Patient is morbidly obese Const: General: cooperative, healthy appearing, comfortable, no acute distress, well developed, alert, awake and Physically active Orientation/consciousness: patient oriented x3 HENMT: Head: normal to inspection, normocephalic and atraumatic Ears: hearing grossly normal bilaterally and external ears normal Face/Nose/Sinus: Normal external nose present, Normal nares present, Normal nasal mucous membranes and turbinates present and normal facial exam Face and sinus: normal facial exam Mouth: Yes Normal oral and palatal mucosa present, Yes lip normal, Yes tongue normal, Yes oropharynx normal and Yes moist mucous membranes Teeth and gingiva: dentition normal Throat: posterior oropharynx normal and tonsils normal ( erythematous) Eyes: General: appearance normal, both eyes and all related structures Alignment and Position: alignment normal and position normal Periorbital: periorbital findings normal Eyelids: eyelids normal Conjunctivae: conjunctivae normal Sclera: sclerae normal Cornea: corneas normal Pupils: Equal, round and reactive pupils present EOM: EOMs intact bilaterally Neck: Neck: normal visual inspection, full ROM and no lymphadenopathy Chest: Chest palpation & inspection: normal inspection of the chest Resp: Effort & Inspection: normal respiratory effort, able to speak in complete sentences, no audible wheezes, no respiratory distress and no use of accessory muscles Auscultation: clear to auscultation bilaterally Cardio: Jugular venous distension: no JVD Rate: regular rate Rhythm: regular rhythm GI: Inspection: normal to inspection GI Palp: No abdominal tenderness, No Tenderness to palpation present (GI), No Guarding due to palpation present (GI), No No hepatosplenomegaly present, No Palpable mass present and No Rebound tenderness present Skin: General skin exam: normal color, no rashes or lesions noted, elasticity normal and turgor normal Neuro: General: patient oriented x3, gait normal, tone normal and moves all extremities Cranial nerves: Yes CN's II-XII intact bilaterally, Yes Equal, round and reactive pupils present and Yes Bilaterally intact EOM present Speech: normal speech Motor exam (neuro): 5/5 motor strength present throughout and Normal motor muscle tone present throughout Sensory Exam: normal sensation Extrem: General: normal to inspection, normal exam except as noted and no pedal edema Other: Left knee is significantly tender along the left medial collateral insertion at the proximal medial tibia, there are no joint effusion, there is a medial collateral tenderness on stressing, no lateral pain, and no cruciate pain. Stressing the ligaments does not show any laxity. Distal neurovascular is intact Psych: Appearance: grossly normal and well kempt Mental Status: mental status grossly normal Speech and movement: Normal speech and movement present Affect: normal affect Attitude: cooperative Thought process: Normal thought process present Course Course Emergency Course: Differential diagnosis includes knee sprain, cartilage injury, fracture X-ray shows DJD Will treat with knee immobilizer, Naprosyn, follow-up in 1 week, may need MRI down the road an ortho consultation if persist Medical decision making complexity and risk is low Vital Signs Vital signs: Vital Signs Temperature 37.2 C 06/27/25 15:17 Pulse Rate 84 06/27/25 15:17 Respiratory Rate 16 06/27/25 15:17 Blood Pressure 127/89 06/27/25 15:17 Pulse Oximetry 97 06/27/25 15:17 Oxygen Delivery Room Air 06/27/25 15:17 Temperature 36.7 C 06/27/25 16:38 Pulse Rate 69 06/27/25 16:45 Respiratory Rate 18 06/27/25 16:45 Blood Pressure 146/76 H 06/27/25 16:45 Pulse Oximetry 97 06/27/25 16:45 Oxygen Delivery Room Air 06/27/25 16:45 [facility] Differential Diagnosis Differential Diagnosis: Differential diagnosis in ED course Imaging Data Radiologist's impression: ITS Impressions Knee X-Ray 06/27/25 15:51 Impression: No acute fracture or malalignment. Discharge Plan Discharge Clinical Impression: Knee MCL sprain Patient Disposition: Home Condition: Stable Instructions: Antibiotic Form, Knee Sprain (ED) Additional Instructions: follow up in 1 week w your pcp, may need pediatric physiatrist, ortho Patient Language: Ukrainian Prescriptions: New celecoxib [Celebrex] 100 mg capsule 100 mg PO BID Qty: 60 0RF No Action vitamin B complex [B Complex-Vitamin B12] Tablet 1 tablet PO DAILY omeprazole magnesium [Prilosec OTC] 20 mg Tablet,Delayed Release (Dr/Ec) 20 mg PO DAILY levocetirizine 5 mg Tablet 5 mg PO DAILY aspirin 81 mg Capsule 81 mg PO DAILY furosemide [Lasix] 40 mg tablet 40 mg PO DAILY Qty: 30 0RF atorvastatin 40 mg Tablet 80 mg PO DAILY Qty: 30 0RF carvedilol [Coreg] 6.25 mg Tablet 6.25 mg PO Q12HR Qty: 60 0RF spironolactone 25 mg Tablet 25 mg PO QAM Qty: 30 0RF Entresto 24-26 mg Tablet 1 tab PO Q12HR Qty: 30 0RF ibuprofen 800 mg tablet 800 mg PO TID PRN (Reason: pain) Qty: 90 0RF hydrocodone-acetaminophen 5-325 mg tablet 1 tablet PO Q6H PRN (Reason: pain) Qty: 10 0RF Follow-up/Referrals: Harms,Michael Coronado M.D. [Primary Care Provider] Time of Disposition: 16:41
== END 2025-06-27 16:45 | disposition home or self-care (01) ==
PROVIDERS: Emergency Provider Emergency Medicine; PCP Family Medicine
DX: S83.412A Sprain of medial collateral ligament of left knee, initial encounter (principal); I10 Essential (primary) hypertension; X58.XXXA Exposure to other specified factors, initial encounter
CPT/HCPCS: 73562; 99283; A9270; L1830